=== PATIENT | female | born 1935 | race Caucasian/White ===

== ENCOUNTER 2018-12-16 21:45 | Inpatient (IN) | payer MEDICARE, BC ==
[~2018-12-16] VITALS: Ht 157.5 cm; Wt 68.0 kg
--- NOTE | 2018-12-16 21:50 | NUR ---
Patient bib pvt ambulance from [facility]. Patient is on 5150 for DTS and was seen by Conner Hanley, crisis team. Patient was accepted by Dr. Gil. Speech is clear, speaks in complete sentences. No neuro deficits.Respiratory even and unlabored, no cough no sob. Denies any n/v/d. Patient in bed at lowest position, sr upx2, call light within reach. Fall precautions implemented per protocol.
[2018-12-16 22:07] LABS: BASOPHILS # (AUTO) 0.1 K/uL (0.0-8.0); EOSINOPHILS # (AUTO) 0.1 K/uL (0.0-0.7); EOSINOPHILS % (AUTO) 1.1 % (0.0-7.0); HEMATOCRIT 42.8 % (31.2-41.9); HEMOGLOBIN 13.8 g/dL (10.9-14.3); LYMPHOCYTES % (AUTO) 12.3 % (20.5-51.5); MEAN CORPUSCULAR HEMOGLOBIN 29.1 uug (24.7-32.8); MEAN CORPUSCULAR HGB CONC 32 g/dL (32.3-35.6); MEAN CORPUSCULAR VOLUME 90.5 fL (75.5-95.3); MONOCYTES # (AUTO) 0.3 K/uL (2.0-10.0); MONOCYTES % (AUTO) 3.5 % (0.0-11.0); NEUTROPHILS # (AUTO) 6.9 K/uL (1.8-8.9); NEUTROPHILS % (AUTO) 82.1 % (38.5-71.5); PLATELET COUNT (AUTO) 682 K/uL (179-408); RED BLOOD CELL COUNT(AUTO) 4.73 MIL/uL (3.63-4.92); WHITE BLOOD COUNT (AUTO) 8.4 K/uL (3.8-11.8)
--- NOTE | 2018-12-16 22:13 | NUR ---
ERMD at bedside for MSE
[2018-12-16 22:15] LABS: CARBON DIOXIDE 29 mmol/L (21-32); CHLORIDE 106 mmol/L (98-107); CREATININE 0.9 mg/dL (0.6-1.3); GLUCOSE 101 mg/dL (74-106); POTASSIUM 4.3 mmol/L (3.5-5.1); UREA NITROGEN, BLOOD 19 mg/dL (7-18)
[2018-12-16 22:20] LABS: ETHANOL < 3 MG/DL (0-0)
[2018-12-16 22:21] LABS: ALANINE AMINOTRANSFERASE 15 U/L (14-59); ALKALINE PHOSPHATASE 91 U/L (50-136); ASPARTATE AMINOTRANSFERASE 12 U/L (15-37); BILIRUBIN,DIRECT 0.1 mg/dL (0.0-0.2); BILIRUBIN,TOTAL 0.3 mg/dL (0.2-1.0); TOTAL PROTEIN, SERUM 7.7 g/dL (6.4-8.2)
[2018-12-16 22:22] LABS: ACETAMINOPHEN < 2.0 ug/mL (10-30)
[2018-12-16 22:28] LABS: THYROID STIMULATING HORMONE 1.721 mIU/mL (0.358-3.740)
[2018-12-16] MEDS ORDERED: VANCOMYCIN 1G/D5W 200 ML PIGGYBACK IV ONE (22:30)
[2018-12-16] MEDS ORDERED: LOSA100T31 PO (22:39)
[2018-12-16] MEDS ORDERED: LOSA50TA39 PO (22:39)
[2018-12-16] MEDS ORDERED: POTA-88 PO (22:39)
[2018-12-16] MEDS ORDERED: CLON0.1T PO (22:39)
[2018-12-16] MEDS ORDERED: HYDR12.5 PO (22:39)
[2018-12-16] MEDS ORDERED: CHOL200026 PO (22:39)
[2018-12-16] MEDS ORDERED: CEFU500T66 PO (22:39)
[2018-12-16] MEDS ORDERED: LEVO25TA9 PO (22:39)
[2018-12-16] MEDS ORDERED: CYAN-51 PO (22:39)
[2018-12-16] MEDS ORDERED: GABA-532 PO (22:39)
[2018-12-16 22:52] LABS: *BILIRUBIN,URIN NEGATIVE (NEGATIVE); *BLOOD, URINE NEGATIVE (NEGATIVE); *CLARITY,URINE CLEAR (CLEAR); *COLOR,URINE YELLOW (YELLOW); *KETONES,URINE NEGATIVE (NEGATIVE); *UROBILINOGEN,URINE 0.2 E.U./dl (NORMAL); LEUKOCYTE ESTERASE ,URINE NEGATIVE (NEGATIVE); NITRITE, URINE NEGATIVE (NEGATIVE); PH,URINE 5.5 (5.0-8.0); UGLUCOSE NEGATIVE (NEGATIVE)
[2018-12-16] MEDS ORDERED: IV NS 1000 ML 1,000 ML IV ONE (23:00)
[2018-12-16 23:02] LABS: *AMPHETAMINE, URINE NEGATIVE (NEGATIVE); *BARBITURATE, URINE NEGATIVE (NEGATIVE); *CANNABINOID, URINE NEGATIVE (NEGATIVE); *COCCAINE, URINE NEGATIVE (NEGATIVE); *OPIATE, URINE NEGATIVE (NEGATIVE); *PHENCYCLIDINE SCREEN,URINE NEGATIVE (NEGATIVE)
[2018-12-16] MEDS ORDERED: VANCOMYCIN IV 200 ML ONE (23:04)
[2018-12-17] MEDS ORDERED: ONDANSETRON 4 MG/2 ML VIAL IV PRN (00:30)
[2018-12-17] MEDS ORDERED: ENOXAPARIN SODIUM 40 MG/0.4 ML DISP.SYRIN SQ SCH (00:30)
[2018-12-17] MEDS ORDERED: Z GUARD REMEDY PASTE 57 GM TUBE TOP PRN (00:30)
[2018-12-17] MEDS ORDERED: MAGNESIUM HYDROXIDE 30 ML LIQUID UDC PO PRN (00:30)
--- NOTE | 2018-12-17 01:20 | NUR ---
Patient transported to TELE in stable condition.
[2018-12-17 01:51] VITALS: BP 178/78
--- NOTE | 2018-12-17 02:00 | NUR ---
Received patient from ER. Dx: Cellulitis. Patient A/Ox4. No signs of acute distress noted. No complaints of pain at this time, only when walking due to right lower leg cellulitis. Picture taken and in chart. Heplock on the left AC is intact and patent. Safety measures initiated. Bed is low and locked, call light within reach. Patient oriented to unit and staff. Will continue to monitor.
[2018-12-17] MEDS: CLONIDINE HCL 0.1 MG TABLET PO PRN (02:10)
[2018-12-17] MEDS: IV NS 1000 ML 1,000 ML IV PRN (02:13)
[2018-12-17] MEDS: ACETAMINOPHEN 325 MG TABLET PO PRN (04:49)
[2018-12-17 04:51] VITALS: BP 155/78
[2018-12-17 06:37] LABS: BASOPHILS # (AUTO) 0.1 K/uL (0.0-8.0); BASOPHILS % (AUTO) 0.8 % (0.0-2.0); EOSINOPHILS # (AUTO) 0.2 K/uL (0.0-0.7); EOSINOPHILS % (AUTO) 2.3 % (0.0-7.0); HEMATOCRIT 39.6 % (31.2-41.9); LYMPHOCYTES # (AUTO) 1.8 K/uL (20.0-40.0); LYMPHOCYTES % (AUTO) 25.3 % (20.5-51.5); MEAN CORPUSCULAR HGB CONC 33 g/dL (32.3-35.6); MEAN CORPUSCULAR VOLUME 88.5 fL (75.5-95.3); MONOCYTES # (AUTO) 0.4 K/uL (2.0-10.0); MONOCYTES % (AUTO) 5.3 % (0.0-11.0); NEUTROPHILS # (AUTO) 4.8 K/uL (1.8-8.9); NEUTROPHILS % (AUTO) 66.3 % (38.5-71.5); PLATELET COUNT (AUTO) 658 K/uL (179-408); RED BLOOD CELL COUNT(AUTO) 4.48 MIL/uL (3.63-4.92); WHITE BLOOD COUNT (AUTO) 7.3 K/uL (3.8-11.8)
[2018-12-17 06:46] LABS: CARBON DIOXIDE 26 mmol/L (21-32); CHLORIDE 108 mmol/L (98-107); CREATININE 0.8 mg/dL (0.6-1.3); GLUCOSE 90 mg/dL (74-106); POTASSIUM 3.6 mmol/L (3.5-5.1); UREA NITROGEN, BLOOD 13 mg/dL (7-18)
[2018-12-17] MEDS: LEVOTHYROXINE SODIUM 25 MCG TABLET PO SCH (07:05)
--- NOTE | 2018-12-17 07:10 | NUR ---
RECEIVED PATIENT AWAKE AND IN BED. PATIENT DENIES PAIN AND DISCOMFORT. PATIENT ALERT AND ORIENTED X3. IV PATENT AND INTACT. BED IN LOWEST POSITION, SIDE RAILS UP X2, CALL LIGHT WITHIN REACH, AND SITTER AT BEDSIDE.
[2018-12-17 07:30] VITALS: BP 168/87
[2018-12-17] MEDS: LOSARTAN POTASSIUM 50 MG TABLET PO SCH ×2 (08:59→21:09)
[2018-12-17] MEDS ORDERED: Medication Not On Formulary EA (Cholecalciferol (Vitamin D3) (Vitamin D3 TAB) 2,000 UNIT PO SCH (09:00)
[2018-12-17] MEDS: GABAPENTIN 100 MG CAPSULE PO SCH ×3 (09:00→17:00)
[2018-12-17] MEDS: CHOLECALCIFEROL 1,000 UNIT TABLET PO SCH (09:00)
[2018-12-17] MEDS: CYANOCOBALAMIN 1,000 MCG TABLET PO SCH (09:00)
--- NOTE | 2018-12-17 09:31 | NUR ---
Clinical Pharmacy Note: Vancomycin Dosing per Pharmacy Subjective: Vancomycin IV to start on this 83 yo female patient for cellulitis. Objective: BUN 13/Scr 0.8 WBC 7.3 Temperature 97.6 ht 157 cm wt 69 kg Assessment/Plan: Vanco 1gm IV x1 given in ED on 12/17 at 2300. Will start vancomycin 1000mg IVPB Q27hr for a predicted vancomycin steady state trough level of 15.8 mcg/ml. 2nd dose due 12/18 at 0200. Will draw a vancomycin trough level prior to the 4th dose of vancomycin (not ordered yet). Will monitor renal function and adjust vancomycin dose, if needed, should renal function change significantly. Will follow daily.
[2018-12-17] MEDS ORDERED: ZOLPIDEM 5 MG TABLET PO PRN (10:00)
[2018-12-17] MEDS: BENZOCAINE/MENTH/CETYLPYRD LOZENGE MM PRN ×2 (11:51→21:16)
--- NOTE | 2018-12-17 12:49 | NUR ---
WOUND CARE CONSULT: PT PRESENTS WITH REDNESS AND SWELLING TO RT LOWER LEG, PRESENT ON ADMISSION. DEFER TO MD. WILL SEE PRN. CURRENT RONA SCORE IS 20. Addendum: 12/17/18 at 1250 by JAY VILLATORO RN Amended: Links added.
--- NOTE | 2018-12-17 13:00 | NUR ---
PATIENT IS HIGHLY ANXIOUS AND ACTING IN A SENSE OF MANIC. PATIENT HAS PRESSURED SPEECH AND IS NOT MAKING SENSE OF THINGS. PATIENT IS EXTREMELY RESTLESS DUE TO NOT HAVING ANY SLEEP LAST NIGHT. PATIENT REFUSES PRN ATIVAN. PATIENT STATES : SITTER IS HAVING A LIBERTARIAN OUTSIDE OF THE ROOM AND IS WHY SHE CANNOT SLEEP."
[2018-12-17] MEDS: LORAZEPAM 1 MG TABLET PO PRN ×2 (13:13→22:50)
[2018-12-17 17:38] VITALS: BP 168/84
--- NOTE | 2018-12-17 18:07 | NUR ---
PATIENT RESTLESS THROUGHOUT MORNING NOT MAKING MUCH SENSE. PATIENT SEEN BY DR. GALVAN, DR SIMMS PRN ATIVAN AND PATENT AGREED TO TAKE IT. PATIENT SLEPT FOR 4 1/2 HOURS. WHEN PATIENT WOKE UP PATIENT MORE ALERT AND ORIENTED, NO COMPLAINTS. DENIES PAIN AND DISCOMFORT. SAFETY MEASURES PROVIDED, SITTER AT BEDSIDE.
[2018-12-18] MEDS: VANCOMYCIN IV 1,000 MG in IV DEXTROSE 5% 250 ML IV SCH (02:30)
[2018-12-18] MEDS: ACETAMINOPHEN 325 MG TABLET PO PRN ×3 (05:22→23:49)
[2018-12-18] MEDS: IV NS 1000 ML 1,000 ML IV PRN ×2 (05:24→21:30)
[2018-12-18] MEDS: LORAZEPAM 1 MG TABLET PO PRN ×3 (05:40→23:49)
[2018-12-18] MEDS: BENZOCAINE/MENTH/CETYLPYRD LOZENGE MM PRN (06:14)
[2018-12-18] MEDS: LEVOTHYROXINE SODIUM 25 MCG TABLET PO SCH (06:17)
[2018-12-18 06:26] LABS: BASOPHILS # (AUTO) 0.1 K/uL (0.0-8.0); BASOPHILS % (AUTO) 1.1 % (0.0-2.0); EOSINOPHILS # (AUTO) 0.4 K/uL (0.0-0.7); EOSINOPHILS % (AUTO) 5.1 % (0.0-7.0); HEMATOCRIT 40.8 % (31.2-41.9); HEMOGLOBIN 13.2 g/dL (10.9-14.3); LYMPHOCYTES # (AUTO) 2.4 K/uL (20.0-40.0); LYMPHOCYTES % (AUTO) 32.8 % (20.5-51.5); MEAN CORPUSCULAR HEMOGLOBIN 28.8 uug (24.7-32.8); MEAN CORPUSCULAR HGB CONC 32 g/dL (32.3-35.6); MEAN CORPUSCULAR VOLUME 89.1 fL (75.5-95.3); MONOCYTES # (AUTO) 0.3 K/uL (2.0-10.0); MONOCYTES % (AUTO) 4.3 % (0.0-11.0); NEUTROPHILS # (AUTO) 4.2 K/uL (1.8-8.9); NEUTROPHILS % (AUTO) 56.7 % (38.5-71.5); PLATELET COUNT (AUTO) 671 K/uL (179-408); RED BLOOD CELL COUNT(AUTO) 4.58 MIL/uL (3.63-4.92); WHITE BLOOD COUNT (AUTO) 7.3 K/uL (3.8-11.8)
[2018-12-18 06:51] LABS: CARBON DIOXIDE 28 mmol/L (21-32); CHLORIDE 107 mmol/L (98-107); CHOLESTEROL 217 mg/dL (<200); CREATININE 0.7 mg/dL (0.6-1.3); GLUCOSE 83 mg/dL (74-106); HDL CHOLESTEROL 68 mg/dL (40-60); MAGNESIUM 1.8 mg/dL (1.8-2.4); PHOSPHOROUS 2.9 mg/dL (2.5-4.9); POTASSIUM 3.4 mmol/L (3.5-5.1); TRIGLYCERIDES 125 MG/DL (30-150); UREA NITROGEN, BLOOD 11 mg/dL (7-18)
[2018-12-18 06:52] LABS: THYROID STIMULATING HORMONE 6.277 mIU/mL (0.358-3.740)
[2018-12-18] MEDS ORDERED: ESCITALOPRAM OXALATE 10 MG TABLET NG SCH (09:15)
--- NOTE | 2018-12-18 09:23 | NUR ---
Clinical Pharmacy Note: Vancomycin Dosing per Pharmacy Subjective: Vancomycin IV to continue on this 83 yo female patient for cellulitis. Objective: BUN 11/Scr 0.7 WBC 7.3 Temperature 97.4 ht 157 cm wt 69 kg Assessment/Plan: Will continue same dose of vancomycin 1000mg IVPB Q27hr for a predicted vancomycin steady state trough level of 15.8 mcg/ml. 3rd dose due 12/19 at 0500. Will draw a vancomycin trough level prior to the 4th dose of vancomycin (not ordered yet). Will monitor renal function and adjust vancomycin dose, if needed, should renal function change significantly. Will follow daily.
[2018-12-18] MEDS ORDERED: POTASSIUM CHLORIDE 20 MEQ TAB.PRT.SR PO ONE (09:30)
[2018-12-18] MEDS: GABAPENTIN 100 MG CAPSULE PO SCH ×3 (09:32→16:27)
[2018-12-18] MEDS: LOSARTAN POTASSIUM 50 MG TABLET PO SCH ×2 (09:32→21:26)
[2018-12-18] MEDS: CYANOCOBALAMIN 1,000 MCG TABLET PO SCH ×2 (09:32→09:37)
[2018-12-18] MEDS: ESCITALOPRAM OXALATE 10 MG TABLET PO SCH (09:32)
[2018-12-18] MEDS: CHOLECALCIFEROL 1,000 UNIT TABLET PO SCH ×2 (09:33→09:37)
[2018-12-18 09:43] VITALS: BP 159/72
[2018-12-18] MEDS: ENOXAPARIN SODIUM 40 MG/0.4 ML DISP.SYRIN SQ SCH (10:48)
[2018-12-18 18:23] VITALS: BP 173/90
[2018-12-18] MEDS: CLONIDINE HCL 0.1 MG TABLET PO PRN (18:25)
--- NOTE | 2018-12-18 18:43 | NUR ---
Patient says she needs to know her laboratory results and if her Irish Moss Gatherer will be able to visit and if she will have a respiratory therapist. Bin Tripper Operator took vital signs, gave reassurance Doctor will round and provided as needed medication for symptoms of hypertension and anxiety. Eduardo Garcia RN
--- NOTE | 2018-12-18 19:11 | NUR ---
Handoff with NESTOR Ventura. Eduardo Peck RN
--- NOTE | 2018-12-18 19:20 | NUR ---
RECEIVED PT AWAKE, ALERT AND ORIENTEDX2. PT SHOWS NO SIGNS OF ACUTE DISTRESS. SITTER AT BEDSIDE FOR SAFETY. PT IV INTACT. SAFETY AND COMFORT PROVIDED. WILL CONTINUE TO MONITOR.
[2018-12-18 20:11] VITALS: BP 159/63
[2018-12-18 20:13] VITALS: BP 157/69
[2018-12-18] MEDS: METOPROLOL TARTRATE 25 MG TABLET PO SCH (21:25)
[2018-12-18] MEDS: ATORVASTATIN 10 MG TABLET PO SCH (21:26)
[2018-12-19] MEDS: VANCOMYCIN IV 1,000 MG in IV DEXTROSE 5% 250 ML IV SCH (04:45)
[2018-12-19 05:47] VITALS: BP 141/71
[2018-12-19] MEDS: LEVOTHYROXINE SODIUM 25 MCG TABLET PO SCH (06:22)
--- NOTE | 2018-12-19 06:37 | NUR ---
PT SLEPT 8 HOURS. SITTER AT BEDSIDE FOR SAFETY. PT SHOWS NO SIGNS OF ACUTE DISTRESS. PRESCRIBED MEDICATION GIVEN AND PT TOLERATED IT WELL. PT TOLERATED IT WELL. PT GIVEN ATIVAN FOR RESTLESSNESS AND ANXIETY. PT NEEDS REORIENTATION. PT TOLERATED IT WELL. SAFETY AND COMFORT PROVIDED. ALL NEEDS ARE MET. WILL ENDORSE TO INCOMING NURSE FOR CONTINUITY OF CARE.
--- NOTE | 2018-12-19 07:15 | NUR ---
patient in Bed, awake , calm and verbally responsive. No signs of Distress noted. No SOB. No complain of Pain or discomfort noted. patient with 1:1 sitter for safety. All needs attended and met. will continue to monitor.
[2018-12-19 07:30] VITALS: BP 144/72
[2018-12-19] MEDS: LOSARTAN POTASSIUM 50 MG TABLET PO SCH ×2 (08:06→20:12)
[2018-12-19] MEDS: ESCITALOPRAM OXALATE 10 MG TABLET PO SCH (08:06)
[2018-12-19] MEDS: GABAPENTIN 100 MG CAPSULE PO SCH ×3 (08:06→16:44)
[2018-12-19] MEDS: METOPROLOL TARTRATE 25 MG TABLET PO SCH ×2 (08:06→20:12)
[2018-12-19] MEDS: ENOXAPARIN SODIUM 40 MG/0.4 ML DISP.SYRIN SQ SCH (08:11)
[2018-12-19] MEDS: BENZOCAINE/MENTH/CETYLPYRD LOZENGE MM PRN (08:12)
--- NOTE | 2018-12-19 09:42 | NUR ---
Clinical Pharmacy Note: Vancomycin Dosing per Pharmacy Subjective: Vancomycin IV to continue on this 83 yo female patient for cellulitis. Objective: BUN 11/Scr 0.7 (12/18) WBC 7.3 (12/18) Temperature 98.5 ht 157 cm wt 69 kg Assessment/Plan: Will continue same dose of vancomycin 1000mg IVPB Q27hr for a predicted vancomycin steady state trough level of 15.8 mcg/ml. 3rd dose due 12/19 at 0500. Will draw a vancomycin trough level prior to the 4th dose of vancomycin (ordered for 12/20 at 0730am). Pharmacy shall review the level when available & adjust the dose if needed. Will follow daily.
[2018-12-19 12:00] VITALS: BP 136/75
[2018-12-19] MEDS: IV NS 1000 ML 1,000 ML IV PRN (12:30)
[2018-12-19 14:53] VITALS: BP 140/71
[2018-12-19] MEDS: ALBUTEROL SULFATE 2.5 MG/3 ML NEBU NEB PRN ×2 (17:19→20:29)
--- NOTE | 2018-12-19 18:35 | NUR ---
Patient in bed, awake and verbally responsive. On nasal cannula at 2LPM, PRN breathing treatment given for Wheezing. No complain of Pain or discomfort. IV infusing well to Left FA, No signs of infiltration noted. All needs attended and met. Remains on 1:1 sitter for safety. Will endorse to Oncoming Nurse.
--- NOTE | 2018-12-19 19:43 | NUR ---
Received patient in bed asleep but arousable. No complaints of pain at this time. IV on RFA intact and patent with IVF infusing. Safety measures observed. Call light within reach
[2018-12-19] MEDS: ATORVASTATIN 10 MG TABLET PO SCH (20:12)
[2018-12-19] MEDS ORDERED: FUROSEMIDE 20 MG/2 ML VIAL IV ONE ×2 (21:15→23:45)
[2018-12-19] MEDS: LORAZEPAM 1 MG TABLET PO PRN (21:56)
[2018-12-19 22:40] VITALS: BP 180/81
--- NOTE | 2018-12-20 | NUR ---
Patient noted w/ wheezing, n.o from Dr. Black for Lasix 20mg IV x 2 doses and to d/c IVF
[2018-12-20 04:00] VITALS: BP 164/83
[2018-12-20] MEDS: CLONIDINE HCL 0.1 MG TABLET PO PRN (04:58)
[2018-12-20] MEDS: LEVOTHYROXINE SODIUM 25 MCG TABLET PO SCH (06:19)
--- NOTE | 2018-12-20 06:42 | NUR ---
Patient slept intermittently. No complaints of pain at this time. All needs attended. Will endorse accordingly
[2018-12-20 07:06] LABS: CARBON DIOXIDE 33 mmol/L (21-32); CHLORIDE 102 mmol/L (98-107); CREATININE 0.7 mg/dL (0.6-1.3); GLUCOSE 94 mg/dL (74-106); MAGNESIUM 1.5 mg/dL (1.8-2.4); PHOSPHOROUS 3.5 mg/dL (2.5-4.9); POTASSIUM 2.9 mmol/L (3.5-5.1); UREA NITROGEN, BLOOD 11 mg/dL (7-18)
[2018-12-20 07:13] LABS: BASOPHILS # (AUTO) 0.1 K/uL (0.0-8.0); EOSINOPHILS # (AUTO) 0.3 K/uL (0.0-0.7); EOSINOPHILS % (AUTO) 3.6 % (0.0-7.0); HEMATOCRIT 37.2 % (31.2-41.9); HEMOGLOBIN 12.2 g/dL (10.9-14.3); LYMPHOCYTES # (AUTO) 1.3 K/uL (20.0-40.0); LYMPHOCYTES % (AUTO) 16.7 % (20.5-51.5); MEAN CORPUSCULAR HEMOGLOBIN 29.4 uug (24.7-32.8); MEAN CORPUSCULAR HGB CONC 33 g/dL (32.3-35.6); MEAN CORPUSCULAR VOLUME 89.6 fL (75.5-95.3); MONOCYTES # (AUTO) 0.5 K/uL (2.0-10.0); MONOCYTES % (AUTO) 6.3 % (0.0-11.0); NEUTROPHILS # (AUTO) 5.5 K/uL (1.8-8.9); NEUTROPHILS % (AUTO) 72.4 % (38.5-71.5); PLATELET COUNT (AUTO) 566 K/uL (179-408); RED BLOOD CELL COUNT(AUTO) 4.15 MIL/uL (3.63-4.92); WHITE BLOOD COUNT (AUTO) 7.6 K/uL (3.8-11.8)
[2018-12-20] MEDS: ALBUTEROL SULFATE 2.5 MG/3 ML NEBU NEB PRN (07:34)
[2018-12-20] MEDS: IPRATROPIUM BROMIDE 0.5 MG/2.5 ML NEBU NEB PRN (07:34)
--- NOTE | 2018-12-20 07:40 | NUR ---
Received patient in Bed, awake and verbally responsive. On Oxygen at 2LPM via nasal canula, still noted with Wheezing. No complain of pain or Discomfort noted. All needs attended. kept the call light within easy reach. will continue to monitor.
[2018-12-20] MEDS: LOSARTAN POTASSIUM 50 MG TABLET PO SCH ×2 (08:39→21:40)
[2018-12-20] MEDS: ESCITALOPRAM OXALATE 10 MG TABLET PO SCH (08:39)
[2018-12-20] MEDS: CHOLECALCIFEROL 1,000 UNIT TABLET PO SCH (08:40)
[2018-12-20] MEDS: GABAPENTIN 100 MG CAPSULE PO SCH ×3 (08:40→17:00)
[2018-12-20] MEDS: METOPROLOL TARTRATE 25 MG TABLET PO SCH ×2 (08:40→21:41)
[2018-12-20] MEDS: CYANOCOBALAMIN 1,000 MCG TABLET PO SCH (08:40)
[2018-12-20] MEDS: ENOXAPARIN SODIUM 40 MG/0.4 ML DISP.SYRIN SQ SCH (08:46)
[2018-12-20] MEDS: VANCOMYCIN IV 1,000 MG in IV DEXTROSE 5% 250 ML IV SCH (09:11)
[2018-12-20] MEDS ORDERED: MAGNESIUM OXIDE 400 MG TABLET PO ONE (09:45)
[2018-12-20] MEDS ORDERED: POTASSIUM CHLORIDE 20 MEQ TAB.PRT.SR PO ONE (09:45)
[2018-12-20 11:45] VITALS: BP 117/64
[2018-12-20 15:42] VITALS: BP 143/87
--- NOTE | 2018-12-20 17:40 | NUR ---
Clinical Pharmacy Note: Vancomycin Dosing per Pharmacy Subjective: Vancomycin IV to continue on this 83 yo female patient for cellulitis. Objective: BUN 11/Scr 0.7 WBC 7.6 Temperature 97.8 ht 157 cm wt 69 kg Vancomycin trough :5.6 Assessment/Plan: Since Vancomycin trough is unexpected low, will draw a vancomycin trough level again prior to the 5th dose of vancomycin (ordered for 12/21 at 1030am). Pharmacy shall review the level when available & adjust the dose if needed. Will follow daily.
--- NOTE | 2018-12-20 18:22 | NUR ---
Patient in bed, awake and verbally responsive. no signs of distress noted. No SOB. No complain of pain or discomfort noted. All needs attended and met. kept the call light within easy reach. Will endorse to oncoming Nurse.
[2018-12-20] MEDS: BENZOCAINE/MENTH/CETYLPYRD LOZENGE MM PRN (19:00)
[2018-12-20 21:00] VITALS: BP 153/64
[2018-12-20] MEDS: ACETAMINOPHEN 325 MG TABLET PO PRN (21:40)
[2018-12-20] MEDS: ATORVASTATIN 10 MG TABLET PO SCH (21:40)
[2018-12-21 04:00] VITALS: BP 138/61
[2018-12-21 06:19] LABS: BASOPHILS # (AUTO) 0.1 K/uL (0.0-8.0); EOSINOPHILS # (AUTO) 0.3 K/uL (0.0-0.7); EOSINOPHILS % (AUTO) 3.5 % (0.0-7.0); HEMATOCRIT 35.2 % (31.2-41.9); HEMOGLOBIN 11.6 g/dL (10.9-14.3); LYMPHOCYTES # (AUTO) 1.2 K/uL (20.0-40.0); LYMPHOCYTES % (AUTO) 15.4 % (20.5-51.5); MEAN CORPUSCULAR HEMOGLOBIN 29.4 uug (24.7-32.8); MEAN CORPUSCULAR HGB CONC 33 g/dL (32.3-35.6); MEAN CORPUSCULAR VOLUME 89.1 fL (75.5-95.3); MONOCYTES # (AUTO) 0.7 K/uL (2.0-10.0); MONOCYTES % (AUTO) 9.4 % (0.0-11.0); NEUTROPHILS # (AUTO) 5.5 K/uL (1.8-8.9); NEUTROPHILS % (AUTO) 70.7 % (38.5-71.5); PLATELET COUNT (AUTO) 540 K/uL (179-408); RED BLOOD CELL COUNT(AUTO) 3.95 MIL/uL (3.63-4.92); WHITE BLOOD COUNT (AUTO) 7.8 K/uL (3.8-11.8)
[2018-12-21 06:35] LABS: ALANINE AMINOTRANSFERASE 26 U/L (14-59); ALKALINE PHOSPHATASE 67 U/L (50-136); ASPARTATE AMINOTRANSFERASE 24 U/L (15-37); BILIRUBIN,TOTAL 0.6 mg/dL (0.2-1.0); CARBON DIOXIDE 34 mmol/L (21-32); CHLORIDE 103 mmol/L (98-107); CREATININE 1.1 mg/dL (0.6-1.3); GLUCOSE 99 mg/dL (74-106); MAGNESIUM 1.8 mg/dL (1.8-2.4); PHOSPHOROUS 4.4 mg/dL (2.5-4.9); POTASSIUM 3.3 mmol/L (3.5-5.1); TOTAL PROTEIN, SERUM 6.4 g/dL (6.4-8.2); UREA NITROGEN, BLOOD 16 mg/dL (7-18)
[2018-12-21 06:40] LABS: THYROID STIMULATING HORMONE 1.279 mIU/mL (0.358-3.740)
[2018-12-21 07:06] LABS: HEPATITIS B SURFACE AB Non Reactive (.); HEPATITIS B SURFACE AG Negative (Negative)
[2018-12-21] MEDS: LEVOTHYROXINE SODIUM 25 MCG TABLET PO SCH (07:54)
--- NOTE | 2018-12-21 08:05 | NUR ---
RECEIVED PT RESTING COMFORTABLY IN BED. PT AWAKE. ALERT AND ORIENTED X 3. PT DENIES PAIN AT THIS TIME. NO ACUTE DISTRESS OR SOB NOTED AT THIS TIME. SAFETY MEASURES OBSERVED AND IMPLEMENTED. CALL LIGHT WITHIN REACH. WILL CONTINUE TO MONITOR.
[2018-12-21] MEDS: METOPROLOL TARTRATE 25 MG TABLET PO SCH (08:29)
[2018-12-21] MEDS: CHOLECALCIFEROL 1,000 UNIT TABLET PO SCH (08:30)
[2018-12-21] MEDS: ESCITALOPRAM OXALATE 10 MG TABLET PO SCH (08:30)
[2018-12-21] MEDS: LOSARTAN POTASSIUM 50 MG TABLET PO SCH ×2 (08:30→21:54)
[2018-12-21] MEDS: CYANOCOBALAMIN 1,000 MCG TABLET PO SCH (08:34)
[2018-12-21] MEDS: GABAPENTIN 100 MG CAPSULE PO SCH ×3 (08:39→17:00)
[2018-12-21] MEDS: ENOXAPARIN SODIUM 40 MG/0.4 ML DISP.SYRIN SQ SCH (08:42)
[2018-12-21] MEDS ORDERED: hydrALAZINE HCL 25 MG TABLET PO PRN (10:30)
[2018-12-21] MEDS ORDERED: POTASSIUM CHLORIDE 20 MEQ TAB.PRT.SR PO ONE (10:30)
[2018-12-21 12:00] VITALS: BP 158/81
--- NOTE | 2018-12-21 12:09 | NUR ---
PT RESTING COMFORTABLY IN BED. PT IS MEDICATION COMPLIANT. NO ACUTE DISTRESS OR SOB NOTED. PT COOPERATIVE. CALL LIGHT WITHIN REACH. BED LOCKED IN LOW POSITION. WILL CONTINUE TO MONITOR PT.
[2018-12-21] MEDS: IPRATROPIUM BROMIDE 0.5 MG/2.5 ML NEBU NEB PRN (12:31)
[2018-12-21] MEDS: ALBUTEROL SULFATE 2.5 MG/3 ML NEBU NEB PRN (12:31)
[2018-12-21 16:12] VITALS: BP 155/74
--- NOTE | 2018-12-21 17:23 | NUR ---
PER DR PIMENTEL, THESE MEDICATIONS HAVE BEEN DC'D PT REFUSES TO TAKE FEARING SIDE EFFECTS: NEURONTIN, LOPRESSOR, ESCITALOPRAM,VIT B12.
--- NOTE | 2018-12-21 18:05 | NUR ---
PT RESTING IN ROOM. NO ACUTE DISTRESS OR SOB NOTED. WILL GIVE REPORT TO INCOMING SHIFT NURSE.
--- NOTE | 2018-12-21 20:00 | NUR ---
Patient received into care, awake and alert, sitting up in bed, resting comfortably. Patient has no complaints of pain or discomfort at this time. IV site is patent and intact. All safety and fall precaution measures are in place. Personal items and call light are within reach at all times. Will continue to monitor.
[2018-12-21] MEDS: CEFAZOLIN 1 G in IV DEXTROSE 5% 50 ML IV SCH (21:53)
[2018-12-21] MEDS: ATORVASTATIN 10 MG TABLET PO SCH (21:54)
[2018-12-21] MEDS: CLONIDINE HCL 0.1 MG TABLET PO PRN (21:54)
[2018-12-21 22:00] VITALS: BP 170/83
--- NOTE | 2018-12-21 22:00 | NUR ---
Notified by LONE LEAD LINEMAN that patient's BP is 170/83 HR 81. Provided patient with prescribed PRN Catapres 0.1mg for BP >160.
--- NOTE | 2018-12-21 23:00 | NUR ---
Retake of patient BP reflects 125/53 HR 65. Catapres effective. Patient resting well.
[2018-12-21] MEDS: BENZOCAINE/MENTH/CETYLPYRD LOZENGE MM PRN (23:21)
[2018-12-22 00:09] VITALS: BP 125/53
[2018-12-22 04:00] VITALS: BP 145/76
[2018-12-22] MEDS: LEVOTHYROXINE SODIUM 25 MCG TABLET PO SCH (06:22)
[2018-12-22] MEDS: ACETAMINOPHEN 325 MG TABLET PO PRN (06:22)
--- NOTE | 2018-12-22 06:30 | NUR ---
Patient is very concerned that when she walks for short periods of time, pain, heat, and swelling occurs in her right leg and does not feel that the prescribed antibiotics are effective. Patient also states that she normally receives foot baths and application of lidocaine lotion applied to her feet, at the facility from where she is a resident, which greatly helps with the pain and discomfort she feels in her feet. Nurse advised would make note of her concerns and provide the information to the oncoming nurse, so that it could be relayed to the MD
--- NOTE | 2018-12-22 06:37 | NUR ---
Patient slept throughout night with only one incident of pain that was addressed with prescribed Tylenol @ 650mg, po. Prescribed IV antibiotic infused as ordered and tolerated well, with no adverse side effects verbalized or observed. All prescribed medications provided as ordered and tolerated well. Patient had an incident of elevated BP, which was addressed with prescribed catapres 0.1mg, which was effective in lowering BP and HR to WNL. Patient concerns about her care have been noted. All safety and fall precaution measures remain in place. Call light and personal items are within reach at all times.
[2018-12-22] MEDS: CEFAZOLIN 1 G in IV DEXTROSE 5% 50 ML IV SCH (09:16)
[2018-12-22] MEDS: CHOLECALCIFEROL 1,000 UNIT TABLET PO SCH (09:16)
[2018-12-22] MEDS: LOSARTAN POTASSIUM 50 MG TABLET PO SCH (09:17)
[2018-12-22] MEDS: ENOXAPARIN SODIUM 40 MG/0.4 ML DISP.SYRIN SQ SCH (09:21)
[2018-12-22 11:50] VITALS: BP 145/65
[2018-12-22] MEDS: ALBUTEROL SULFATE 2.5 MG/3 ML NEBU NEB PRN (11:55)
[2018-12-22] MEDS: IPRATROPIUM BROMIDE 0.5 MG/2.5 ML NEBU NEB PRN (11:55)
[2018-12-22] MEDS: LORAZEPAM 1 MG TABLET PO PRN ×2 (13:32→19:52)
[2018-12-22 15:49] VITALS: BP 166/73
[2018-12-22] MEDS ORDERED: ATOR10TA PO (16:54)
[2018-12-22] MEDS ORDERED: ZOLP5TAB8 PO (16:54)
[2018-12-22] MEDS ORDERED: HYDR-894 PO (16:54)
[2018-12-22] MEDS ORDERED: ALBU2.5V7 NEB (16:54)
[2018-12-22] MEDS ORDERED: LORA-258 PO (16:54)
[2018-12-22] MEDS ORDERED: Benzocaine/Menth/Cetylpyrd Cl MM (16:54)
[2018-12-22] MEDS ORDERED: CEFA1VIA19 IV (16:54)
[2018-12-22] MEDS ORDERED: ACET325T53 PO (16:54)
[2018-12-22] MEDS ORDERED: IPRA0.2S6 NEB (16:54)
[2018-12-22] MEDS ORDERED: LOSA50TA3 PO (16:54)
[2018-12-22] MEDS ORDERED: ACID1TAB4 PO (16:54)
[2018-12-22] MEDS ORDERED: MAGN400O6 PO (16:54)
--- NOTE | 2018-12-22 18:50 | NUR ---
report called to maurilio at [facility]. patients belongings were reconciled and medications picked up from pharmacy for discharge. iv in place on discharge and discharge education given. Patient appears to be somewhat anxious for discharge but glade that she is not going back to [facility]. awaiting ambulance for pickup.
--- NOTE | 2018-12-22 19:15 | NUR ---
PATIENT WAS AMBULATING IN HALLWAY WITH WALKER INDEPENDENTLY AGITATED ABOUT DISCHARGE WHEN AMBULANCE ARRIVED, PATIENT TAKEN TO ROOM AND VITALS RECORDED BY AMBULANCE CREW, BLOOD PRESSURE NOTED TO BE ELEVATED AND PATIENT GIVEN CLONIDINE AND AMBULANCE WAS ASKED TO WAIT.
[2018-12-22 19:31] VITALS: BP 167/72
[2018-12-22] MEDS: CLONIDINE HCL 0.1 MG TABLET PO PRN (19:31)
--- NOTE | 2018-12-22 19:50 | NUR ---
PATIENT CONTINUED TO BE AGITATED DUE TO WAITING FOR DISCHARGE, AND WAS GIVEN ATIVAN.
[2018-12-22] MEDS ORDERED: CLONIDINE HCL 0.1 MG TABLET PO ONE (20:00)
== END 2018-12-22 20:46 | DRG 871 ==
LOC: ER 21:45 → TELE3 12-17 00:54 → EDBD 12-17 00:54 → MEDSURG3 12-17 16:20
PROVIDERS: ADMIT Nurse Practitioner Acute Care; ATTEND Internal Medicine
DX: A41.9 Sepsis, unspecified organism (principal); I50.33 Acute on chronic diastolic (congestive) heart failure; L03.115 Cellulitis of right lower limb; J45.901 Unspecified asthma with (acute) exacerbation; D68.59 Other primary thrombophilia; E87.2 Acidosis; I11.0 Hypertensive heart disease with heart failure; Z91.81 History of falling; Z74.09 Other reduced mobility; H26.9 Unspecified cataract; Z90.710 Acquired absence of both cervix and uterus; E03.9 Hypothyroidism, unspecified; Z79.890 Hormone replacement therapy; F41.9 Anxiety disorder, unspecified; E78.5 Hyperlipidemia, unspecified; E87.6 Hypokalemia; E83.42 Hypomagnesemia; Z87.891 Personal history of nicotine dependence; K46.9 Unspecified abdominal hernia without obstruction or gangrene; B35.1 Tinea unguium; B35.3 Tinea pedis; Z79.899 Other long term (current) drug therapy; I70.203 Unspecified atherosclerosis of native arteries of extremities, bilateral legs; I70.0 Atherosclerosis of aorta; M54.10 Radiculopathy, site unspecified
CPT/HCPCS: 36415; 70030-TC; 71045; 80307; 83605; 83735; 84100; 84443; 85025; 86706; 86803; 87040; 87340; 93005; 93307; 94640; 94664; A4663; G0378; G0480; G0480-TC; J0690; J1650; J1940; J3370; J3590; J7030; J7060

== ENCOUNTER 2022-03-22 23:37 | Inpatient (IN) | payer MEDICARE, BC ==
[~2022-03-22] VITALS: Ht 154.9 cm; Wt 53.5 kg
[~2022-03-22 23:37] MED LIST: ACET325T53 PO; ACID1TAB4 PO; ALBU2.5V7 NEB; ATOR10TA PO; Benzocaine/Menth/Cetylpyrd Cl MM; CEFA1VIA19 IV; CHOL200026 PO; CLON0.1T PO; HYDR-894 PO; HYDR12.5 PO; IPRA0.2S6 NEB; LEVO25TA9 PO; LORA-258 PO; LOSA50TA3 PO; MAGN400O6 PO; POTA-88 PO; ZOLP5TAB8 PO
--- NOTE | 2022-03-23 | NUR ---
Seen and examined by Dr. Leiva.
--- NOTE | 2022-03-23 00:34 | NUR ---
labs collected by tech. u/a collected sent to lab
[2022-03-23 00:52] LABS: HEMATOCRIT 39.4 % (31.2-41.9); MEAN CORPUSCULAR HEMOGLOBIN 29.3 uug (24.7-32.8); MEAN CORPUSCULAR VOLUME 90.7 fL (75.5-95.3); PLATELET COUNT (AUTO) 800 K/uL (179-408)
[2022-03-23 01:02] LABS: *BILIRUBIN,URIN NEGATIVE (NEGATIVE); *BLOOD, URINE NEGATIVE (NEGATIVE); *CLARITY,URINE CLEAR (CLEAR); *COLOR,URINE YELLOW (YELLOW); *KETONES,URINE NEGATIVE (NEGATIVE); *UROBILINOGEN,URINE 0.2 E.U./dl (NORMAL); LEUKOCYTE ESTERASE ,URINE NEGATIVE (NEGATIVE); NITRITE, URINE NEGATIVE (NEGATIVE); PH,URINE 7.5 (5.0-8.0); UGLUCOSE NEGATIVE (NEGATIVE)
[2022-03-23 01:05] LABS: ALANINE AMINOTRANSFERASE 8 U/L (14-59); ALKALINE PHOSPHATASE 96 U/L (50-136); ASPARTATE AMINOTRANSFERASE 17 U/L (15-37); BILIRUBIN,DIRECT 0.1 mg/dL (0.0-0.2); BILIRUBIN,TOTAL 0.5 mg/dL (0.2-1.0); CARBON DIOXIDE 29 mmol/L (21-32); CHLORIDE 104 mmol/L (98-107); CREATININE 0.9 mg/dL (0.6-1.3); GLUCOSE 92 mg/dL (74-106); POTASSIUM 4.3 mmol/L (3.5-5.1); TOTAL PROTEIN, SERUM 8.2 g/dL (6.4-8.2); UREA NITROGEN, BLOOD 14 mg/dL (7-18)
--- NOTE | 2022-03-23 01:19 | NUR ---
Pt. in bed, MRSA collercted and sent to lab
--- NOTE | 2022-03-23 02:04 | NUR ---
Called Misael in [facility] spoke to DAVID nurse from [facility] who states they don't have a list of her medication stating "She handle all of her medications and she does not let us touch them."
[2022-03-23] MEDS ORDERED: ATOR10TA PO (02:48)
[2022-03-23] MEDS ORDERED: SENN-261 PO (02:48)
[2022-03-23] MEDS ORDERED: LORA-258 PO (02:48)
[2022-03-23] MEDS ORDERED: CARV6.25 PO (02:48)
[2022-03-23] MEDS ORDERED: ESTR0.623 PO (02:48)
[2022-03-23] MEDS ORDERED: HYDR-894 PO (02:48)
[2022-03-23] MEDS ORDERED: ASPI81TA31 PO (02:48)
[2022-03-23] MEDS ORDERED: ASCO500C18 PO (02:48)
[2022-03-23] MEDS ORDERED: POLY15DR31 OP (02:48)
[2022-03-23] MEDS ORDERED: MULT-594 PO (02:48)
[2022-03-23] MEDS ORDERED: LOSA100T31 PO (02:48)
[2022-03-23] MEDS ORDERED: ACID1TAB4 PO (02:48)
--- NOTE | 2022-03-23 02:52 | NUR ---
Loren nurse from [facility] faxed medication list.
--- NOTE | 2022-03-23 05:11 | NUR ---
Called [facility] and spoke to July, patient was assigned bed 141b.
--- NOTE | 2022-03-23 05:37 | NUR ---
Called U and gave report to July.
[2022-03-23 06:45] VITALS: BP 160/90
[2022-03-23] MEDS ORDERED: ACETAMINOPHEN 325 MG TABLET PO PRN (06:45)
[2022-03-23] MEDS ORDERED: LORAZEPAM 0.5 MG TABLET PO PRN (06:45)
[2022-03-23] MEDS ORDERED: MAGNESIUM HYDROXIDE 30 ML LIQUID UDC PO PRN (06:45)
[2022-03-23] MEDS ORDERED: MAG HYDROX/AL HYDROX/SIMETH 30 ML LIQUID UDC PO PRN (06:45)
[2022-03-23] MEDS ORDERED: BLOOD SUGAR DIAGNOSTIC 1 EACH STRIP VI ONE (06:45)
--- NOTE | 2022-03-23 06:48 | NUR ---
GPS NOTES: Admitted a 86 y/0 female patient in MHU from [facility], on 5150 d/t DTS and GD, as per hold patient is having bizarre behavior,patient is not taking her medications, calling police, aggressive toward the staff, not sleeping at night, hearing voices. She was BIB ER nurse to the unit, she is observed to have unsteady gait, assist safely to chair. Upon face to face evaluation patient is noted to be anxious, not answering questions that are being asked. She is fixated on contacting the police and Dr.susie that know her case. Patient had a hard time hearing making it difficult for her to answer questions at this time, she states she don/t have hearing aids. She denies SI/AH V/H. V/s taken and recorded. Oriented to the unit. Advisement and patient rights handbook given to patient. Safety precautiopns in placed.
--- NOTE | 2022-03-23 06:58 | NUR ---
Pt. admitted to MHU , under care of Dr. Nguyễn. Belongs List completed and belonging transferred with the patient. RN May aware of patients arrival.
[2022-03-23 07:30] VITALS: BP 159/93
[2022-03-23] MEDS ORDERED: hydrALAZINE HCL 25 MG TABLET PO PRN (09:15)
[2022-03-23] MEDS ORDERED: LOSARTAN POTASSIUM 50 MG TABLET PO SCH (09:15)
[2022-03-23] MEDS ORDERED: CARVEDILOL 6.25 MG TABLET PO ONE (10:30)
[2022-03-23] MEDS: ASPIRIN 81 MG TAB.CHEW PO SCH (11:10)
[2022-03-23] MEDS ORDERED: ZOLP5TAB2 PO (12:40)
[2022-03-23] MEDS ORDERED: LOSA50TA39 PO (12:40)
[2022-03-23] MEDS: DOXYCYCLINE HYCLATE 100 MG TABLET PO SCH ×2 (13:33→21:21)
[2022-03-23] MEDS ORDERED: LORA10TA7 PO (13:39)
[2022-03-23] MEDS ORDERED: CALC1TAB91 PO (13:41)
[2022-03-23] MEDS ORDERED: MELA10TA PO (13:42)
[2022-03-23 16:00] VITALS: BP 135/64
--- NOTE | 2022-03-23 16:59 | NUR ---
Received patient awake in her room. Patient is A/O X 2 -3 to person, place. Patient is cooperative with nursing care, compliant with medications, depressed, irritable at times. Patient presents redness and scaly skin on left lower extremity, Assistant Professor Nurse Education was informed and ordered Bilateral arterial Doppler, and Doxycycline 100 mg PO for 7 days starting today at 13:00. Patient ambulates with walker, unsteady gait. Requires minimal assistance with ADL. Active listening provided. Fall and safety precautions implemented.
[2022-03-23] MEDS: ACIDOPHILUS/BULGARICUS CHEW TAB PO SCH (17:15)
[2022-03-23] MEDS: CALCIUM CARB/VITAMIN D 500MG-200UNITS TABLET PO SCH (17:16)
[2022-03-23 20:13] VITALS: BP 152/64
[2022-03-23] MEDS: SENNOSIDES 1 TABLET PO SCH (20:13)
[2022-03-23] MEDS: ATORVASTATIN 10 MG TABLET PO SCH (20:13)
[2022-03-23] MEDS: LORAZEPAM 1 MG TABLET PO PRN (20:14)
[2022-03-23] MEDS: QUETIAPINE FUMARATE 25 MG TABLET PO SCH (20:26)
[2022-03-23] MEDS ORDERED: CARVEDILOL 6.25 MG TABLET PO SCH (21:00)
--- NOTE | 2022-03-24 02:32 | NUR ---
Received patient in room. Awake and alert but forgetful. The patient is anxious and needy . This patient refused to take her PM Seroquel, despite education and encouragement from this customs entry writer. Frequent reorientation and reassurance provided during the night. Safety Stratiges are in place. Continuing to monitor V.S and provided assistance with ADLs as needed.
[2022-03-24] MEDS: LEVOTHYROXINE SODIUM 25 MCG TABLET PO SCH (06:23)
[2022-03-24] MEDS: CALCIUM CARB/VITAMIN D 500MG-200UNITS TABLET PO SCH ×2 (06:24→16:14)
[2022-03-24 07:30] VITALS: BP 157/80
[2022-03-24 08:24] LABS: BILIRUBIN,TOTAL 0.6 mg/dL (0.2-1.0); CREATININE 0.9 mg/dL (0.6-1.3); POTASSIUM 3.9 mmol/L (3.5-5.1); TOTAL PROTEIN, SERUM 7.7 g/dL (6.4-8.2)
[2022-03-24] MEDS ORDERED: Medication Not On Formulary EA (Ascorbic Acid (Vitamin C) 1,000 MG) PO SCH (09:00)
[2022-03-24] MEDS ORDERED: Medication Not On Formulary EA (Multivitamins (Multivitamin) 1 EACH) PO SCH (09:00)
[2022-03-24] MEDS ORDERED: Medication Not On Formulary EA (Cholecalciferol (Vitamin D3) (Vitamin D3 TAB) 2,000 UNIT PO SCH (09:00)
[2022-03-24] MEDS ORDERED: CHOLECALCIFEROL 1,000 UNIT TABLET PO SCH (09:00)
[2022-03-24] MEDS: ACIDOPHILUS/BULGARICUS CHEW TAB PO SCH ×2 (09:17→16:14)
[2022-03-24] MEDS: ASPIRIN 81 MG TAB.CHEW PO SCH (09:17)
[2022-03-24] MEDS: MULTIVITAMINS,THERAPEUTIC TABLET PO SCH (09:17)
[2022-03-24] MEDS: ESCITALOPRAM OXALATE 10 MG TABLET PO SCH (09:18)
[2022-03-24] MEDS: LOSARTAN POTASSIUM 50 MG TABLET PO SCH ×2 (09:18→16:20)
[2022-03-24] MEDS: ASCORBIC ACID 500 MG TABLET PO SCH (09:18)
[2022-03-24] MEDS: DOXYCYCLINE HYCLATE 100 MG TABLET PO SCH ×2 (09:23→19:55)
--- NOTE | 2022-03-24 10:34 | NUR ---
VANDA Initial Discharge Note: Pt currently resides at [facility] located at [address] [place] [address] ([phone]). V[facility] upon [facility]. Pt stated she currently does not want to return to [facility]. However, pt stated she will like some time to finalize her decision. VANDA spoke with pt's brother, Dash
--- NOTE | 2022-03-24 10:36 | NUR ---
VANDA Family Contact: VANDA spoke with pt's brother, Dash Haas ([phone]) who stated pt does not have a DPOA or conservator. Dash stated pt does not have any family support to help with the pt upon discharge unfortunately. Dash stated he wishes for pt to agree to return to [facility] and would appreciate updates from this SW. VANDA ensured Dash will be updated with treatment and discharge planning prior to discharge. Dash was appreciate and agreeable.
--- NOTE | 2022-03-24 10:36 | NUR ---
VANDA Initial Discharge Note Update: Pt currently resides at [facility] located at [address] [place] [address] ([phone]). [facility] upon [facility]. Pt stated she currently does not want to return to [facility]. However, pt stated she will like some time to finalize her decision. VANDA spoke with pt's brother, Dash Haas ([phone]) who stated pt does not have a DPOA or conservator. Dash stated pt does not have any family support to help with the pt upon discharge unfortunately. VANDA will continue to work with pt, family and MD to ensure a safe and proper discharge plan.
--- NOTE | 2022-03-24 10:37 | NUR ---
VANDA Discharge Update: VANDA spoke with Hina, community life care planner at [facility] located at [address] [place] [address] ([phone]) who stated pt is welcome back upon discharge. Hina stated they provide transportation for the pt Sunday through Sunday before 5pm. VANDA informed Hina this automotive service writer will update Hina with a discharge date when available. Hina is aware and agreeable.
--- NOTE | 2022-03-24 11:39 | NUR ---
Firearms Report: Project Intern completed and submitted a [employer] firearms report for 5150 a danger to others and grave disability certifications. A copy of report has been placed in patient chart.
[2022-03-24] MEDS: LORAZEPAM 1 MG TABLET PO PRN (19:55)
[2022-03-24] MEDS: SENNOSIDES 1 TABLET PO SCH (19:55)
[2022-03-24] MEDS: ATORVASTATIN 10 MG TABLET PO SCH (19:56)
[2022-03-24] MEDS: QUETIAPINE FUMARATE 25 MG TABLET PO SCH (19:56)
[2022-03-24 20:07] VITALS: BP 142/59
--- NOTE | 2022-03-24 23:36 | NUR ---
Received patient at the start of the shift, anxious and confused. The patient was concerned that she had not gotten any medications during the day, that she missed seeing the doctor and that the did not order her food for tomorrow. This program writer provided reassurance and redirection. The reality is , this patient did get those things but could not remember. The patient ruminates on situations in the past that may or may not have happened. She denies SI , but is worried about the minute to minute plan. The patient did verbally make a contract for safety and took the PM medications with education and encouragement. Safety Stratiges are in place and continuous monitoring of needed assistance with ADLs . No acute distress noted at this time.
[2022-03-25] MEDS: LEVOTHYROXINE SODIUM 25 MCG TABLET PO SCH (06:24)
[2022-03-25] MEDS: CALCIUM CARB/VITAMIN D 500MG-200UNITS TABLET PO SCH ×2 (06:24→17:20)
[2022-03-25 07:52] VITALS: BP 157/81
[2022-03-25] MEDS: ASPIRIN 81 MG TAB.CHEW PO SCH (08:45)
[2022-03-25] MEDS: LOSARTAN POTASSIUM 50 MG TABLET PO SCH ×2 (08:51→17:20)
[2022-03-25] MEDS: DOXYCYCLINE HYCLATE 100 MG TABLET PO SCH ×2 (08:54→20:54)
[2022-03-25] MEDS: ACIDOPHILUS/BULGARICUS CHEW TAB PO SCH ×2 (08:54→17:20)
[2022-03-25] MEDS: MULTIVITAMINS,THERAPEUTIC TABLET PO SCH (08:55)
[2022-03-25] MEDS: ESCITALOPRAM OXALATE 10 MG TABLET PO SCH (08:55)
[2022-03-25] MEDS: ASCORBIC ACID 500 MG TABLET PO SCH (08:59)
--- NOTE | 2022-03-25 15:10 | NUR ---
Patient is forgetful, confused, disorganized, cooperative with nursing care, compliant with medications. Patient is A/O X 2 to person. Patient ambulates with walker, unsteady gait. Continent with bladder and bowel. Reality orientation provided. Fall and safety precautions implemented.
[2022-03-25 16:37] VITALS: BP 142/68
[2022-03-25 20:00] VITALS: BP 159/75
[2022-03-25] MEDS: ATORVASTATIN 10 MG TABLET PO SCH (20:54)
[2022-03-25] MEDS: SENNOSIDES 1 TABLET PO SCH (20:54)
[2022-03-25] MEDS: ZOLPIDEM 5 MG TABLET PO PRN (20:54)
[2022-03-25] MEDS: QUETIAPINE FUMARATE 25 MG TABLET PO SCH ×2 (20:55→21:00)
[2022-03-26] MEDS: LEVOTHYROXINE SODIUM 25 MCG TABLET PO SCH (06:26)
[2022-03-26] MEDS: CALCIUM CARB/VITAMIN D 500MG-200UNITS TABLET PO SCH ×2 (06:26→17:02)
[2022-03-26 08:26] VITALS: BP 157/72
[2022-03-26] MEDS: ESCITALOPRAM OXALATE 10 MG TABLET PO SCH (08:53)
[2022-03-26] MEDS: ACIDOPHILUS/BULGARICUS CHEW TAB PO SCH ×2 (08:53→17:02)
[2022-03-26] MEDS: MULTIVITAMINS,THERAPEUTIC TABLET PO SCH (08:53)
[2022-03-26] MEDS: DOXYCYCLINE HYCLATE 100 MG TABLET PO SCH ×2 (08:53→20:58)
[2022-03-26] MEDS: ASCORBIC ACID 500 MG TABLET PO SCH (08:53)
[2022-03-26] MEDS: LOSARTAN POTASSIUM 50 MG TABLET PO SCH ×2 (08:54→17:03)
[2022-03-26] MEDS: ASPIRIN 81 MG TAB.CHEW PO SCH (08:55)
[2022-03-26] MEDS: METOPROLOL TARTRATE 25 MG TABLET PO SCH ×2 (12:22→20:58)
[2022-03-26 16:17] VITALS: BP 147/64
--- NOTE | 2022-03-26 16:34 | NUR ---
Received Patient is AAO x2 forgetful, confused, disorganized, cooperative with nursing care, compliant with medications. Patient is . on antibiotic for BLE cellulitis patient tolerated well , Patient ambulates with walker, unsteady gait. Continent with bladder and bowel. Reality orientation provided. Fall and safety precautions implemented.
[2022-03-26] MEDS: GLUCERNA SHAKE 237 ML CAN PO SCH (17:03)
[2022-03-26 20:06] VITALS: BP 158/81
[2022-03-26] MEDS: ATORVASTATIN 10 MG TABLET PO SCH (20:57)
[2022-03-26] MEDS: SENNOSIDES 1 TABLET PO SCH (20:57)
[2022-03-26] MEDS: QUETIAPINE FUMARATE 25 MG TABLET PO SCH (20:58)
[2022-03-26] MEDS: ZOLPIDEM 5 MG TABLET PO PRN (21:25)
--- NOTE | 2022-03-27 03:16 | NUR ---
GPS NOTES: Patient in bed when received, patient A&0x3. Patient is to be hard of hearing making it difficult to communicate with patient. Patient needs alot of prompting when taking her medications. She continues to refuse seroquel as she states "There's nothing wrong w/my head, I will speak with my psychiatrist about this". Educate in the importance of med compliant but still refused. Patient verbalized her complaints on her independent residence on how they are trying to get rid of her, as she tried to queta them for injuring her toes w/c land her to the hospital. Active listening implemented. Patient is appreciative for this public relations writer for listening to her. PRN ambien given. Effective. Patient sleeping well. No distress noted. All safety measures implemented.
[2022-03-27] MEDS: LEVOTHYROXINE SODIUM 25 MCG TABLET PO SCH (06:13)
[2022-03-27] MEDS: CALCIUM CARB/VITAMIN D 500MG-200UNITS TABLET PO SCH ×2 (06:13→17:37)
[2022-03-27] MEDS: MULTIVITAMINS,THERAPEUTIC TABLET PO SCH (08:34)
[2022-03-27] MEDS: ESCITALOPRAM OXALATE 10 MG TABLET PO SCH (08:34)
[2022-03-27] MEDS: ACIDOPHILUS/BULGARICUS CHEW TAB PO SCH ×2 (08:34→17:37)
[2022-03-27] MEDS: ASCORBIC ACID 500 MG TABLET PO SCH (08:34)
[2022-03-27] MEDS: ASPIRIN 81 MG TAB.CHEW PO SCH (08:34)
[2022-03-27] MEDS: METOPROLOL TARTRATE 25 MG TABLET PO SCH ×2 (08:35→20:26)
[2022-03-27] MEDS: LOSARTAN POTASSIUM 50 MG TABLET PO SCH ×2 (08:35→17:38)
[2022-03-27] MEDS: DOXYCYCLINE HYCLATE 100 MG TABLET PO SCH ×2 (08:37→20:25)
[2022-03-27] MEDS: GLUCERNA SHAKE 237 ML CAN PO SCH ×2 (08:38→17:39)
[2022-03-27 09:06] VITALS: BP 139/76
--- NOTE | 2022-03-27 14:19 | NUR ---
Received Patient is AAO x2 forgetful, confused, disorganized, argumentative and needy with nursing care, compliant with AM medications. bu refused Seroquel at HS , Dr. Gil adjusted HS medication and explanted to pt. per patient she agree to take medication tonight . Patient is on antibiotic for BLE cellulitis patient tolerated well , Patient ambulates with walker, unsteady gait. Continent with bladder and bowel. Reality orientation provided. Fall and safety precautions implemented.
[2022-03-27 16:17] VITALS: BP 155/78
[2022-03-27 19:57] VITALS: BP 155/63
[2022-03-27] MEDS: SENNOSIDES 1 TABLET PO SCH (20:24)
[2022-03-27] MEDS: ATORVASTATIN 10 MG TABLET PO SCH (20:24)
[2022-03-27] MEDS: LORAZEPAM 1 MG TABLET PO PRN (20:25)
[2022-03-27] MEDS: OLANZAPINE 2.5 MG TABLET PO SCH ×2 (20:25→21:00)
[2022-03-27] MEDS: ZOLPIDEM 5 MG TABLET PO PRN (21:02)
--- NOTE | 2022-03-27 21:27 | NUR ---
Patient refused to take PM Zyprexa despite education and encouragement. Patient is forgetful, confused and has no recollection of agreeing to take the medication . The patient is needy and asked for a " Sleeping pill ". After this automotive service writer brought the medication to the room, the patient changed her mind and refused it. Frequent real estate administrative assistant , reassurance and reorientation needed and provided. Safety Stratiges are in place.
[2022-03-28] MEDS: CALCIUM CARB/VITAMIN D 500MG-200UNITS TABLET PO SCH ×2 (05:52→17:23)
[2022-03-28] MEDS: LEVOTHYROXINE SODIUM 25 MCG TABLET PO SCH (05:52)
[2022-03-28 07:52] VITALS: BP 142/74
[2022-03-28] MEDS: MULTIVITAMINS,THERAPEUTIC TABLET PO SCH (08:26)
[2022-03-28] MEDS: ASPIRIN 81 MG TAB.CHEW PO SCH (08:26)
[2022-03-28] MEDS: METOPROLOL TARTRATE 25 MG TABLET PO SCH (08:26)
[2022-03-28] MEDS: ACIDOPHILUS/BULGARICUS CHEW TAB PO SCH ×2 (08:26→17:23)
[2022-03-28] MEDS: GLUCERNA SHAKE 237 ML CAN PO SCH ×2 (08:26→17:24)
[2022-03-28] MEDS: DOXYCYCLINE HYCLATE 100 MG TABLET PO SCH ×2 (08:27→20:27)
[2022-03-28] MEDS: ASCORBIC ACID 500 MG TABLET PO SCH (08:27)
[2022-03-28] MEDS: ESCITALOPRAM OXALATE 10 MG TABLET PO SCH (08:27)
[2022-03-28] MEDS: OLANZAPINE 2.5 MG TABLET PO SCH ×3 (08:36→20:26)
[2022-03-28] MEDS: LOSARTAN POTASSIUM 50 MG TABLET PO SCH ×2 (09:07→17:24)
[2022-03-28 15:16] VITALS: BP 132/59
--- NOTE | 2022-03-28 16:50 | NUR ---
Patient was refused to take Zyprexa last night , made aware and adjusted medication. patient is intrusive irritable forgetful needy .compliant with all am medication ,assisted and supervision patient to restroom .ambulate with walker refused to attend in group activity ,will continue to monitoring.
[2022-03-28 19:51] VITALS: BP 156/78
[2022-03-28] MEDS: LORAZEPAM 1 MG TABLET PO PRN (20:27)
[2022-03-28] MEDS: SENNOSIDES 1 TABLET PO SCH (20:27)
[2022-03-28] MEDS: METOPROLOL TARTRATE 50 MG TABLET PO SCH (20:27)
[2022-03-28] MEDS: ATORVASTATIN 10 MG TABLET PO SCH (20:27)
[2022-03-29] MEDS: ZOLPIDEM 5 MG TABLET PO PRN ×2 (01:43→22:32)
[2022-03-29] MEDS ORDERED: LORAZEPAM 1 MG TABLET PO PRN (03:30)
[2022-03-29] MEDS ORDERED: ZOLPIDEM 5 MG TABLET PO PRN (03:30)
[2022-03-29] MEDS ORDERED: ACETAMINOPHEN 325 MG TABLET PO PRN (03:30)
[2022-03-29] MEDS ORDERED: MAG HYDROX/AL HYDROX/SIMETH 30 ML LIQUID UDC PO PRN (03:30)
[2022-03-29] MEDS ORDERED: MAGNESIUM HYDROXIDE 30 ML LIQUID UDC PO PRN (03:30)
--- NOTE | 2022-03-29 03:49 | NUR ---
Patient was medication compliant and very anxious at the start of the shift. During the night, this patient woke up , multiple times confused , disoriented and unable to seep. The patient was given a snack and brought out to the nurses station for closer monitoring. The patient has been hallucinating and delusional but not combative in any way. Frequent reorientation and reassurance are on going. Safety Stratiges are in place.
[2022-03-29] MEDS: LEVOTHYROXINE SODIUM 25 MCG TABLET PO SCH (05:46)
[2022-03-29] MEDS: CALCIUM CARB/VITAMIN D 500MG-200UNITS TABLET PO SCH ×2 (05:46→16:52)
[2022-03-29 07:30] VITALS: BP 147/62
[2022-03-29] MEDS: ASPIRIN 81 MG TAB.CHEW PO SCH (08:43)
[2022-03-29] MEDS: METOPROLOL TARTRATE 50 MG TABLET PO SCH ×2 (08:44→20:13)
[2022-03-29] MEDS: ASCORBIC ACID 500 MG TABLET PO SCH (08:44)
[2022-03-29] MEDS: ACIDOPHILUS/BULGARICUS CHEW TAB PO SCH ×2 (08:44→16:51)
[2022-03-29] MEDS: MULTIVITAMINS,THERAPEUTIC TABLET PO SCH (08:44)
[2022-03-29] MEDS: ESCITALOPRAM OXALATE 10 MG TABLET PO SCH (08:45)
[2022-03-29] MEDS: OLANZAPINE 2.5 MG TABLET PO SCH ×2 (08:45→20:12)
[2022-03-29] MEDS: LOSARTAN POTASSIUM 50 MG TABLET PO SCH ×2 (08:46→16:52)
[2022-03-29] MEDS: DOXYCYCLINE HYCLATE 100 MG TABLET PO SCH ×2 (08:46→20:12)
[2022-03-29] MEDS: GLUCERNA SHAKE 237 ML CAN PO SCH ×2 (08:46→16:52)
--- NOTE | 2022-03-29 15:49 | NUR ---
Patient is cooperative with nursing care, compliant with medications, confused and forgetful at times, engage in conversations. Patient ambulates with assistance, requires minimal assistance with nursing care. Patient is encourage to verbalize concerns. Fall and safety precautions implemented.
[2022-03-29 16:00] VITALS: BP 134/52
[2022-03-29] MEDS: SENNOSIDES 1 TABLET PO SCH (20:12)
[2022-03-29] MEDS: ATORVASTATIN 10 MG TABLET PO SCH (20:13)
[2022-03-29 20:36] VITALS: BP 158/65
--- NOTE | 2022-03-29 21:07 | NUR ---
GPS: Anxious,restless,confused and forgetful. Reality re-orientation provided prn. Poor insight and judgment to present situation. Meds as ordered and is compliant. Safe environment provided. Fall precautions observed. Will continue to monitor.
[2022-03-30] MEDS: CALCIUM CARB/VITAMIN D 500MG-200UNITS TABLET PO SCH ×2 (06:30→17:20)
[2022-03-30] MEDS: LEVOTHYROXINE SODIUM 25 MCG TABLET PO SCH (06:30)
[2022-03-30 07:30] VITALS: BP 146/80
[2022-03-30] MEDS: ASPIRIN 81 MG TAB.CHEW PO SCH (09:18)
[2022-03-30] MEDS: GLUCERNA SHAKE 237 ML CAN PO SCH ×2 (09:18→17:38)
[2022-03-30] MEDS: ACIDOPHILUS/BULGARICUS CHEW TAB PO SCH ×2 (09:19→17:20)
[2022-03-30] MEDS: LOSARTAN POTASSIUM 50 MG TABLET PO SCH ×2 (09:19→17:26)
[2022-03-30] MEDS: ESCITALOPRAM OXALATE 10 MG TABLET PO SCH (09:20)
[2022-03-30] MEDS: ASCORBIC ACID 500 MG TABLET PO SCH (09:21)
[2022-03-30] MEDS: DOXYCYCLINE HYCLATE 100 MG TABLET PO SCH (09:21)
[2022-03-30] MEDS: MULTIVITAMINS,THERAPEUTIC TABLET PO SCH (09:21)
[2022-03-30] MEDS: OLANZAPINE 2.5 MG TABLET PO SCH ×2 (09:45→20:12)
[2022-03-30] MEDS: METOPROLOL TARTRATE 50 MG TABLET PO SCH ×2 (09:47→20:13)
--- NOTE | 2022-03-30 15:57 | NUR ---
Patient is demanding, needy, attention seeker, confused and forgetful, selective with medications but taking them, requires more than minimal assistance with ADL. Patient is A/O X 2 to person. Emotional support provided. Fall and safety precautions implemented.
[2022-03-30 16:00] VITALS: BP 141/63
[2022-03-30] MEDS: ATORVASTATIN 10 MG TABLET PO SCH (20:12)
[2022-03-30] MEDS: SENNOSIDES 1 TABLET PO SCH (20:13)
[2022-03-30 20:51] VITALS: BP 150/79
--- NOTE | 2022-03-30 22:24 | NUR ---
GPS: Pt.remains anxious,confused,forgetful and disorganized. Poor insight to present situation. Re-assured and re-directed prn. Compliant with her meds.although paranoid at times. Fall precautions observed. Needs attended. Will continue to monitor behavior.
[2022-03-31] MEDS: CALCIUM CARB/VITAMIN D 500MG-200UNITS TABLET PO SCH ×2 (06:28→17:11)
[2022-03-31] MEDS: LEVOTHYROXINE SODIUM 25 MCG TABLET PO SCH (06:28)
[2022-03-31 07:30] VITALS: BP 175/74
[2022-03-31] MEDS: OLANZAPINE 2.5 MG TABLET PO SCH ×2 (08:21→20:30)
[2022-03-31] MEDS: ACIDOPHILUS/BULGARICUS CHEW TAB PO SCH ×2 (08:21→17:11)
[2022-03-31] MEDS: MULTIVITAMINS,THERAPEUTIC TABLET PO SCH (08:22)
[2022-03-31] MEDS: ASPIRIN 81 MG TAB.CHEW PO SCH (08:22)
[2022-03-31] MEDS: ASCORBIC ACID 500 MG TABLET PO SCH (08:22)
[2022-03-31] MEDS: ESCITALOPRAM OXALATE 10 MG TABLET PO SCH (08:22)
[2022-03-31] MEDS: LOSARTAN POTASSIUM 50 MG TABLET PO SCH ×2 (08:28→17:11)
[2022-03-31] MEDS: METOPROLOL TARTRATE 50 MG TABLET PO SCH ×2 (08:28→20:30)
[2022-03-31] MEDS: GLUCERNA SHAKE 237 ML CAN PO SCH ×2 (08:29→17:12)
--- NOTE | 2022-03-31 12:44 | NUR ---
WOUND CARE CONSULT: RECEIVED REQUEST TO SEE PT FOR LEFT LOWER LEG AND FOOT REDNESS WITH PEELING SKIN WELL LONG TOENAILS. DR GODFREY CALLED FOR DPM CONSULT. IN AGREEMENT WITH PLAN OF CARE.
[2022-03-31 16:00] VITALS: BP 159/59
--- NOTE | 2022-03-31 16:18 | NUR ---
Patient is demanding, needy, attention seeker, depressed, talkative at times, selective with medications but taking them, suspicious. Wound consult ordered today for scaly, red, bloody left lower extremity. Requires minimal assistance with ADL. Patient is encourage to verbalize concerns. Fall and safety precautions implemented.
[2022-03-31 20:19] VITALS: BP 121/67
[2022-03-31] MEDS: SENNOSIDES 1 TABLET PO SCH (20:30)
[2022-03-31] MEDS: ATORVASTATIN 10 MG TABLET PO SCH (20:30)
[2022-03-31] MEDS: LORAZEPAM 1 MG TABLET PO PRN (21:49)
--- NOTE | 2022-04-01 02:17 | NUR ---
This patient has been compliant with all medications this PM. Still anxious and suspicious with staff. The patient ate snack and was assisted to the bathroom using a FWW. The patient is very Hard of Hearing , making conversation difficult.She did deny SI . The patient is worried about most everything. Reassurance and reorientation provided throughout the shift as needed. Safety Stratiges are in place.
[2022-04-01] MEDS: LEVOTHYROXINE SODIUM 25 MCG TABLET PO SCH (06:01)
[2022-04-01] MEDS: CALCIUM CARB/VITAMIN D 500MG-200UNITS TABLET PO SCH ×2 (06:01→16:46)
[2022-04-01 08:03] VITALS: BP 171/84
[2022-04-01] MEDS: ASPIRIN 81 MG TAB.CHEW PO SCH (08:30)
[2022-04-01] MEDS: GLUCERNA SHAKE 237 ML CAN PO SCH ×2 (08:30→16:47)
[2022-04-01] MEDS: MULTIVITAMINS,THERAPEUTIC TABLET PO SCH (08:30)
[2022-04-01] MEDS: ESCITALOPRAM OXALATE 10 MG TABLET PO SCH (08:31)
[2022-04-01] MEDS: OLANZAPINE 2.5 MG TABLET PO SCH ×2 (08:31→21:20)
[2022-04-01] MEDS: ACIDOPHILUS/BULGARICUS CHEW TAB PO SCH ×2 (08:31→16:46)
[2022-04-01] MEDS: METOPROLOL TARTRATE 50 MG TABLET PO SCH ×2 (08:31→21:20)
[2022-04-01] MEDS: ASCORBIC ACID 500 MG TABLET PO SCH (08:31)
[2022-04-01] MEDS: LOSARTAN POTASSIUM 50 MG TABLET PO SCH ×2 (08:31→16:47)
--- NOTE | 2022-04-01 10:23 | NUR ---
PT WAS FOUND ON FLOOR NEXT TO TOILET IN BATHROOM FROM AN APPARENT FALL. PT STATED SHE FINISHED TOILETING, AND WAS TRYING TO GET UP TO HER FWW AND DID NOT HAVE THE FULL STRENGTH TO GET UP. NO VISIBLE INJURIES NOTED AT THIS TIME. NON SLIP SOCKS WERE ON PT DURING APPARENT FALL. PT C/O 05/19 LEFT SHARP FLANK PAIN. CALLED DR. GALVAN AND HE IS NOTIFIED. CALLED DR. HAGER, AND HE IS ALSO NOTIFIED WITH ORDERS FOR KUB. IN NO ACUTE DISTRESS.
[2022-04-01] MEDS: ACETAMINOPHEN 325 MG TABLET PO PRN (13:44)
[2022-04-01 16:25] VITALS: BP 161/73
[2022-04-01 20:00] VITALS: BP 141/72
[2022-04-01] MEDS: SENNOSIDES 1 TABLET PO SCH (21:20)
[2022-04-01] MEDS: ATORVASTATIN 10 MG TABLET PO SCH (21:20)
[2022-04-01] MEDS: ZOLPIDEM 5 MG TABLET PO PRN (21:47)
[2022-04-01] MEDS: LORAZEPAM 1 MG TABLET PO PRN (23:35)
--- NOTE | 2022-04-02 05:30 | NUR ---
GPS: Pt.slept poorly last night despite receiving anxiety and sleeping med. as requested by pt. Pt.is anxious,restless,needy,demanding at times and talking to self most of the night. Pt.is positive for visual hallucinations. Re-directed and re-assured prn. Fall precautions observed. Denies pain at this time when asked. Needs attended. Will continue to monitor.
[2022-04-02] MEDS: LEVOTHYROXINE SODIUM 25 MCG TABLET PO SCH (06:05)
[2022-04-02] MEDS: CALCIUM CARB/VITAMIN D 500MG-200UNITS TABLET PO SCH ×2 (06:05→17:13)
[2022-04-02 07:55] VITALS: BP 176/81
[2022-04-02] MEDS: ASCORBIC ACID 500 MG TABLET PO SCH (08:44)
[2022-04-02] MEDS: ASPIRIN 81 MG TAB.CHEW PO SCH (08:44)
[2022-04-02] MEDS: MULTIVITAMINS,THERAPEUTIC TABLET PO SCH (08:44)
[2022-04-02] MEDS: METOPROLOL TARTRATE 50 MG TABLET PO SCH ×2 (08:45→20:33)
[2022-04-02] MEDS: OLANZAPINE 2.5 MG TABLET PO SCH (08:45)
[2022-04-02] MEDS: GLUCERNA SHAKE 237 ML CAN PO SCH ×2 (08:46→17:14)
[2022-04-02] MEDS: LOSARTAN POTASSIUM 50 MG TABLET PO SCH ×2 (08:46→17:14)
[2022-04-02] MEDS: ESCITALOPRAM OXALATE 10 MG TABLET PO SCH (08:46)
[2022-04-02] MEDS: ACIDOPHILUS/BULGARICUS CHEW TAB PO SCH ×2 (08:47→17:13)
[2022-04-02] MEDS ORDERED: MINERAL OIL/PETROLATUM,WHITE 57 GM TUBE TOP PRN (12:45)
--- NOTE | 2022-04-02 15:24 | NUR ---
Received Patient is AAO x2 forgetful, confused, disorganized, argumentative and needy with nursing care, compliant with AM medications. s/p CT head done will follow up for result , Patient ambulates with walker, unsteady gait. Continent with bladder and bowel. Reality orientation provided. Fall and safety precautions implemented.
[2022-04-02 16:39] VITALS: BP 129/75
[2022-04-02] MEDS: CLOTRIMAZOLE 1% CREAM 30 GM TUBE TOP SCH (17:00)
[2022-04-02 20:02] VITALS: BP 111/59
[2022-04-02] MEDS: ATORVASTATIN 10 MG TABLET PO SCH (20:32)
[2022-04-02] MEDS: SENNOSIDES 1 TABLET PO SCH (20:32)
[2022-04-02] MEDS: OLANZAPINE 5 MG TABLET PO SCH (20:32)
[2022-04-02] MEDS: LORAZEPAM 1 MG TABLET PO PRN (20:32)
[2022-04-02] MEDS: ACETAMINOPHEN 325 MG TABLET PO PRN (23:27)
[2022-04-02] MEDS: ZOLPIDEM 5 MG TABLET PO PRN (23:28)
[2022-04-03] MEDS: LEVOTHYROXINE SODIUM 25 MCG TABLET PO SCH (06:52)
[2022-04-03] MEDS: CALCIUM CARB/VITAMIN D 500MG-200UNITS TABLET PO SCH ×2 (06:52→16:05)
[2022-04-03 08:09] VITALS: BP 155/73
[2022-04-03] MEDS: MULTIVITAMINS,THERAPEUTIC TABLET PO SCH (10:43)
[2022-04-03] MEDS: ASPIRIN 81 MG TAB.CHEW PO SCH (10:43)
[2022-04-03] MEDS: ESCITALOPRAM OXALATE 10 MG TABLET PO SCH (10:43)
[2022-04-03] MEDS: ACIDOPHILUS/BULGARICUS CHEW TAB PO SCH ×2 (10:44→16:05)
[2022-04-03] MEDS: OLANZAPINE 2.5 MG TABLET PO SCH (10:44)
[2022-04-03] MEDS: ASCORBIC ACID 500 MG TABLET PO SCH (10:45)
[2022-04-03] MEDS: METOPROLOL TARTRATE 50 MG TABLET PO SCH ×2 (10:46→21:15)
[2022-04-03] MEDS: LOSARTAN POTASSIUM 50 MG TABLET PO SCH ×2 (10:49→16:03)
[2022-04-03] MEDS: GLUCERNA SHAKE 237 ML CAN PO SCH ×2 (10:50→16:06)
[2022-04-03] MEDS: CLOTRIMAZOLE 1% CREAM 30 GM TUBE TOP SCH ×2 (10:50→16:05)
[2022-04-03 11:05] LABS: HEMATOCRIT 41.5 % (31.2-41.9); MEAN CORPUSCULAR HEMOGLOBIN 29.3 uug (24.7-32.8); MEAN CORPUSCULAR VOLUME 89.8 fL (75.5-95.3); PLATELET COUNT (AUTO) 508 K/uL (179-408)
[2022-04-03 11:08] LABS: POTASSIUM 4.1 mmol/L (3.5-5.1)
--- NOTE | 2022-04-03 11:10 | NUR ---
SW Discharge Update: SW spoke with RN, Mike who is informed on pt's return to [facility] [address] [place] [address] ([phone]) on Sunday at 11am by facilities transportation. Mike stated Hina the community child caregiver who this SW initially spoke with will contact this mortgage or loan underwriter back if needed.
--- NOTE | 2022-04-03 11:15 | NUR ---
VANDA Family Contact: VANDA spoke with pt's brother, Dash Haas ([phone]) and informed him on pt's discharge details to return to [facility] on Sunday. Dash was grateful for the update.
[2022-04-03 16:09] VITALS: BP 148/74
[2022-04-03 19:47] VITALS: BP 120/73
[2022-04-03] MEDS: ATORVASTATIN 10 MG TABLET PO SCH (21:14)
[2022-04-03] MEDS: LORAZEPAM 1 MG TABLET PO PRN (21:14)
[2022-04-03] MEDS: OLANZAPINE 5 MG TABLET PO SCH (21:14)
[2022-04-03] MEDS: SENNOSIDES 1 TABLET PO SCH (21:15)
[2022-04-04] MEDS: LORAZEPAM 1 MG TABLET PO PRN ×2 (06:26→21:34)
[2022-04-04] MEDS: LEVOTHYROXINE SODIUM 25 MCG TABLET PO SCH (06:26)
[2022-04-04] MEDS: CALCIUM CARB/VITAMIN D 500MG-200UNITS TABLET PO SCH ×2 (06:26→17:14)
[2022-04-04 08:00] VITALS: BP 125/64
[2022-04-04] MEDS: ACIDOPHILUS/BULGARICUS CHEW TAB PO SCH ×2 (09:59→17:13)
[2022-04-04] MEDS: ASPIRIN 81 MG TAB.CHEW PO SCH (09:59)
[2022-04-04] MEDS: MULTIVITAMINS,THERAPEUTIC TABLET PO SCH (09:59)
[2022-04-04] MEDS: OLANZAPINE 2.5 MG TABLET PO SCH (09:59)
[2022-04-04] MEDS: METOPROLOL TARTRATE 50 MG TABLET PO SCH ×2 (10:00→21:35)
[2022-04-04] MEDS: GLUCERNA SHAKE 237 ML CAN PO SCH ×2 (10:01→17:15)
[2022-04-04] MEDS: LOSARTAN POTASSIUM 50 MG TABLET PO SCH ×2 (10:02→17:14)
[2022-04-04] MEDS: ASCORBIC ACID 500 MG TABLET PO SCH (10:05)
[2022-04-04] MEDS: CLOTRIMAZOLE 1% CREAM 30 GM TUBE TOP SCH ×2 (10:06→17:15)
--- NOTE | 2022-04-04 10:18 | NUR ---
VANDA Discharge Update: VANDA spoke with Shayla in person from [facility] [address] [place] [address] ([phone]) who came to evaluate the pt. Per pt's Dia ESPINOZA ([phone]) and Shayla, pt cannot return to [facility] due to her continuation of care needs. They stated she will need higher level of care as [facility] does not have that available. VANDA discussed the discharge update with psychiatrist, Dr. Gil. VANDA and will work with pt to ensure a safe and proper discharge plan that pt agrees with.
--- NOTE | 2022-04-04 14:56 | NUR ---
Received patient sleeping in the hallway. A/O X 1 -2 to person. Patient is withdrawn, quiet, depressed, sleepy since she slept only 2 hours last night, complaint with medications, cooperative with nursing care. Patient presents scaly, red lower extremities treated with clotrimazole cream. Emotional support provided. Fall and safety precautions implemented.
[2022-04-04 16:04] VITALS: BP 108/82
[2022-04-04 20:00] VITALS: BP 118/66
[2022-04-04 20:03] LABS: *BILIRUBIN,URIN NEGATIVE (NEGATIVE); *BLOOD, URINE NEGATIVE (NEGATIVE); *CLARITY,URINE CLEAR (CLEAR); *COLOR,URINE YELLOW (YELLOW); *KETONES,URINE NEGATIVE (NEGATIVE); *UROBILINOGEN,URINE 0.2 E.U./dl (NORMAL); LEUKOCYTE ESTERASE ,URINE NEGATIVE (NEGATIVE); NITRITE, URINE NEGATIVE (NEGATIVE); UGLUCOSE NEGATIVE (NEGATIVE)
[2022-04-04] MEDS: SENNOSIDES 1 TABLET PO SCH (21:34)
[2022-04-04] MEDS: OLANZAPINE 5 MG TABLET PO SCH (21:34)
[2022-04-04] MEDS: ATORVASTATIN 10 MG TABLET PO SCH (21:35)
--- NOTE | 2022-04-05 02:50 | NUR ---
Pt continues to present with confusion, disorientation, and is AOx1. Overall compliant with POC, pt needs continuous reassurance and re-education. Pt is ambulatory x1 assist. Fall risk. Needs full assistance with ADLs. Pt continues to have trouble staying asleep at night/this shift. Safety measure taken. Will continue to monitor.
[2022-04-05] MEDS: LEVOTHYROXINE SODIUM 25 MCG TABLET PO SCH ×3 (06:13→07:22)
[2022-04-05] MEDS: CALCIUM CARB/VITAMIN D 500MG-200UNITS TABLET PO SCH ×4 (06:13→16:57)
[2022-04-05 07:30] VITALS: BP 168/79
[2022-04-05] MEDS: ASPIRIN 81 MG TAB.CHEW PO SCH (09:07)
[2022-04-05] MEDS: ACIDOPHILUS/BULGARICUS CHEW TAB PO SCH ×2 (09:07→16:57)
[2022-04-05] MEDS: MULTIVITAMINS,THERAPEUTIC TABLET PO SCH (09:07)
[2022-04-05] MEDS: METOPROLOL TARTRATE 50 MG TABLET PO SCH ×2 (09:08→20:23)
[2022-04-05] MEDS: LOSARTAN POTASSIUM 50 MG TABLET PO SCH ×2 (09:08→16:58)
[2022-04-05] MEDS: GLUCERNA SHAKE 237 ML CAN PO SCH ×2 (09:09→16:58)
[2022-04-05] MEDS: CLOTRIMAZOLE 1% CREAM 30 GM TUBE TOP SCH ×2 (09:09→16:58)
[2022-04-05] MEDS: ASCORBIC ACID 500 MG TABLET PO SCH (09:12)
--- NOTE | 2022-04-05 14:53 | NUR ---
Received patient sleeping in the hallway. A/O X 2 to person. Patient is withdrawn, confused, disoriented, depressed, complaint with medications, cooperative with nursing care, following directions. Patient lower extremities is treated with clotrimazole cream twice per day. Patient is encourage to verbalize concerns. Fall and safety precautions implemented.
[2022-04-05 16:00] VITALS: BP 122/51
[2022-04-05 20:16] VITALS: BP 134/56
[2022-04-05] MEDS: OLANZAPINE 2.5 MG TABLET PO SCH (20:22)
[2022-04-05] MEDS: ATORVASTATIN 10 MG TABLET PO SCH (20:22)
[2022-04-05] MEDS: SENNOSIDES 1 TABLET PO SCH (20:22)
[2022-04-05] MEDS: ZOLPIDEM 5 MG TABLET PO PRN (21:45)
[2022-04-06] MEDS: LORAZEPAM 1 MG TABLET PO PRN (02:10)
[2022-04-06] MEDS: LEVOTHYROXINE SODIUM 25 MCG TABLET PO SCH (06:15)
[2022-04-06] MEDS: CALCIUM CARB/VITAMIN D 500MG-200UNITS TABLET PO SCH ×2 (06:15→17:12)
--- NOTE | 2022-04-06 06:27 | NUR ---
GPS: Pt.slept for 4 hrs.last night. Pt.was observed to be having visual hallucinations. Confused,forgetful and disorganized. Poor insight to present situation. Med.compliant. Fall precautions observed. Will continue to re-direct prn.
[2022-04-06 07:30] VITALS: BP_SYST 115; BP_SYST 120; BP_DIAS 60; BP_DIAS 63
[2022-04-06] MEDS: ASPIRIN 81 MG TAB.CHEW PO SCH (08:38)
[2022-04-06] MEDS: MULTIVITAMINS,THERAPEUTIC TABLET PO SCH (08:39)
[2022-04-06] MEDS: ACIDOPHILUS/BULGARICUS CHEW TAB PO SCH ×2 (08:40→17:12)
[2022-04-06] MEDS: ASCORBIC ACID 500 MG TABLET PO SCH (08:40)
[2022-04-06] MEDS: METOPROLOL TARTRATE 50 MG TABLET PO SCH ×2 (08:40→20:14)
[2022-04-06] MEDS: GLUCERNA SHAKE 237 ML CAN PO SCH ×2 (08:41→17:13)
[2022-04-06] MEDS: CLOTRIMAZOLE 1% CREAM 30 GM TUBE TOP SCH ×2 (08:41→17:14)
[2022-04-06] MEDS: LOSARTAN POTASSIUM 50 MG TABLET PO SCH ×2 (08:41→17:00)
--- NOTE | 2022-04-06 14:59 | NUR ---
Received patient sleeping in her room. A/O X 2 to person. Patient is confused and states "My son forgot me here. Can you call him to pick me up?" Patient is preoccupied "Is my leg any better? Am I losing my leg?" Patient is disoriented, forgetful. Patient is compliant with medications. Patient requires more than minimal assistance with ADL. Active listening provided. Fall and safety precautions implemented.
--- NOTE | 2022-04-06 15:13 | NUR ---
VANDA Family Contact: SW spoke with pt's brother, aDsh Haas ([phone]) and informed him on pt's discharge details to [place] [address] ([phone]). Dash was grateful for the help. Pt is agreeable to the facility.
[2022-04-06 16:00] VITALS: BP 112/67
[2022-04-06 20:07] VITALS: BP 127/68
[2022-04-06] MEDS: ATORVASTATIN 10 MG TABLET PO SCH (20:13)
[2022-04-06] MEDS: SENNOSIDES 1 TABLET PO SCH (20:13)
[2022-04-06] MEDS: OLANZAPINE 2.5 MG TABLET PO SCH (20:13)
[2022-04-06] MEDS: TEMAZEPAM 15 MG CAPSULE PO PRN (22:01)
[2022-04-07] MEDS: CALCIUM CARB/VITAMIN D 500MG-200UNITS TABLET PO SCH ×2 (07:00→17:09)
[2022-04-07] MEDS: LEVOTHYROXINE SODIUM 25 MCG TABLET PO SCH (07:00)
[2022-04-07 07:30] VITALS: BP 126/69
[2022-04-07] MEDS: ACIDOPHILUS/BULGARICUS CHEW TAB PO SCH ×2 (08:29→17:09)
[2022-04-07] MEDS: ASPIRIN 81 MG TAB.CHEW PO SCH (08:29)
[2022-04-07] MEDS: MULTIVITAMINS,THERAPEUTIC TABLET PO SCH (08:29)
[2022-04-07] MEDS: LOSARTAN POTASSIUM 50 MG TABLET PO SCH ×2 (08:30→17:09)
[2022-04-07] MEDS: METOPROLOL TARTRATE 50 MG TABLET PO SCH ×2 (08:30→20:02)
[2022-04-07] MEDS: GLUCERNA SHAKE 237 ML CAN PO SCH ×2 (08:31→17:12)
[2022-04-07] MEDS: ASCORBIC ACID 500 MG TABLET PO SCH (08:31)
[2022-04-07] MEDS: CLOTRIMAZOLE 1% CREAM 30 GM TUBE TOP SCH ×2 (08:32→17:12)
[2022-04-07 16:00] VITALS: BP 115/47
--- NOTE | 2022-04-07 16:21 | NUR ---
Received Patient is AAO x2 forgetful, confused, disorganized, argumentative and needy with nursing care, compliant with AM medications. Patient has BLE cellulitis wound care done , Patient ambulates with walker, unsteady gait. Continent with bladder and bowel. Reality orientation provided. Fall and safety precautions implemented.
[2022-04-07] MEDS: ATORVASTATIN 10 MG TABLET PO SCH (20:01)
[2022-04-07] MEDS: SENNOSIDES 1 TABLET PO SCH (20:01)
[2022-04-07] MEDS: OLANZAPINE 2.5 MG TABLET PO SCH (20:01)
[2022-04-07] MEDS: ACETAMINOPHEN 325 MG TABLET PO PRN (20:09)
[2022-04-07 21:03] VITALS: BP 139/66
[2022-04-07] MEDS: TEMAZEPAM 15 MG CAPSULE PO PRN (21:39)
[2022-04-08] MEDS: HYDROXYZINE PAMOATE 25 MG CAPSULE PO PRN ×2 (04:13→20:07)
[2022-04-08] MEDS: CALCIUM CARB/VITAMIN D 500MG-200UNITS TABLET PO SCH ×2 (06:07→17:00)
[2022-04-08] MEDS: LEVOTHYROXINE SODIUM 25 MCG TABLET PO SCH (06:07)
[2022-04-08] MEDS: ASPIRIN 81 MG TAB.CHEW PO SCH (08:42)
[2022-04-08] MEDS: LOSARTAN POTASSIUM 50 MG TABLET PO SCH ×2 (08:42→17:00)
[2022-04-08] MEDS: ACIDOPHILUS/BULGARICUS CHEW TAB PO SCH ×2 (08:42→17:00)
[2022-04-08] MEDS: ASCORBIC ACID 500 MG TABLET PO SCH (08:42)
[2022-04-08] MEDS: MULTIVITAMINS,THERAPEUTIC TABLET PO SCH (08:42)
[2022-04-08] MEDS: METOPROLOL TARTRATE 50 MG TABLET PO SCH ×2 (08:43→20:06)
[2022-04-08] MEDS: GLUCERNA SHAKE 237 ML CAN PO SCH ×2 (08:44→17:12)
[2022-04-08] MEDS: CLOTRIMAZOLE 1% CREAM 30 GM TUBE TOP SCH ×2 (08:45→17:12)
--- NOTE | 2022-04-08 14:43 | NUR ---
patient is confused and disoriented med.compliant. Paranoid and suspicious. Re-directed and re-assured prn. Takes meds. as ordered. Fall precautions observed. Needs attended.
[2022-04-08 16:06] VITALS: BP 119/70
[2022-04-08] MEDS: ATORVASTATIN 10 MG TABLET PO SCH (20:06)
[2022-04-08] MEDS: OLANZAPINE 2.5 MG TABLET PO SCH (20:07)
[2022-04-08] MEDS: SENNOSIDES 1 TABLET PO SCH (20:07)
[2022-04-08 20:22] VITALS: BP 150/78
[2022-04-08] MEDS: ACETAMINOPHEN 325 MG TABLET PO PRN (22:22)
[2022-04-08] MEDS: TEMAZEPAM 15 MG CAPSULE PO PRN (22:22)
--- NOTE | 2022-04-09 04:44 | NUR ---
Pt remains confused, disoriented, and disheveled. Pt continues to experience AH and VH. Takes repetitive effort to re-direct and re-educate. Overall, pt is compliant with POC. Denies SI/HI. Contracted for safety.
[2022-04-09] MEDS: CALCIUM CARB/VITAMIN D 500MG-200UNITS TABLET PO SCH ×2 (06:17→16:59)
[2022-04-09] MEDS: LEVOTHYROXINE SODIUM 25 MCG TABLET PO SCH (06:17)
[2022-04-09 08:19] VITALS: BP 148/60
[2022-04-09] MEDS: ASCORBIC ACID 500 MG TABLET PO SCH (09:09)
[2022-04-09] MEDS: ACIDOPHILUS/BULGARICUS CHEW TAB PO SCH ×2 (09:09→17:00)
[2022-04-09] MEDS: ASPIRIN 81 MG TAB.CHEW PO SCH (09:09)
[2022-04-09] MEDS: MULTIVITAMINS,THERAPEUTIC TABLET PO SCH (09:09)
[2022-04-09] MEDS: METOPROLOL TARTRATE 50 MG TABLET PO SCH ×2 (09:10→20:15)
[2022-04-09] MEDS: LOSARTAN POTASSIUM 50 MG TABLET PO SCH ×2 (09:10→17:00)
[2022-04-09] MEDS: CLOTRIMAZOLE 1% CREAM 30 GM TUBE TOP SCH ×2 (09:11→17:01)
[2022-04-09] MEDS: GLUCERNA SHAKE 237 ML CAN PO SCH ×2 (09:11→17:02)
--- NOTE | 2022-04-09 14:30 | NUR ---
Received patient sleeping in her room. Patient is A/OX 1 -2 to person. Patient is confused, forgetful, disoriented, preoccupied, disorganized, needy and demanding at times. Patient ambulates with assistance, requires more than minimal assistance with ADL. Reassurance given. Fall and safety precautions implemented.
[2022-04-09 16:15] VITALS: BP 128/58
[2022-04-09 19:54] VITALS: BP 131/73
[2022-04-09] MEDS: ACETAMINOPHEN 325 MG TABLET PO PRN (20:13)
[2022-04-09] MEDS: OLANZAPINE 2.5 MG TABLET PO SCH (20:13)
[2022-04-09] MEDS: ATORVASTATIN 10 MG TABLET PO SCH (20:14)
[2022-04-09] MEDS: SENNOSIDES 1 TABLET PO SCH (20:14)
[2022-04-09] MEDS: HYDROXYZINE PAMOATE 25 MG CAPSULE PO PRN (20:14)
--- NOTE | 2022-04-10 04:49 | NUR ---
Pt is still AOx1, responds to name, but disoriented, disorganized, and confused. Pt continues to have AH & VH throughout this shift. Pt is difficult to direct, but with continued effort pt is compliant. Pt speaks out loud having conversations with imaginary people. Will continue to monitor.
[2022-04-10] MEDS: LEVOTHYROXINE SODIUM 25 MCG TABLET PO SCH (07:17)
[2022-04-10] MEDS: CALCIUM CARB/VITAMIN D 500MG-200UNITS TABLET PO SCH ×2 (07:17→17:00)
[2022-04-10 07:51] VITALS: BP 131/56
[2022-04-10] MEDS: ACIDOPHILUS/BULGARICUS CHEW TAB PO SCH ×2 (08:57→17:00)
[2022-04-10] MEDS: ASCORBIC ACID 500 MG TABLET PO SCH (08:57)
[2022-04-10] MEDS: ASPIRIN 81 MG TAB.CHEW PO SCH (08:57)
[2022-04-10] MEDS: METOPROLOL TARTRATE 50 MG TABLET PO SCH ×3 (08:59→22:01)
[2022-04-10] MEDS: MULTIVITAMINS,THERAPEUTIC TABLET PO SCH (08:59)
[2022-04-10] MEDS: LOSARTAN POTASSIUM 50 MG TABLET PO SCH ×2 (09:02→17:00)
[2022-04-10] MEDS: GLUCERNA SHAKE 237 ML CAN PO SCH ×2 (09:03→17:00)
[2022-04-10] MEDS: CLOTRIMAZOLE 1% CREAM 30 GM TUBE TOP SCH ×2 (09:05→17:00)
[2022-04-10 16:08] VITALS: BP 120/49
--- NOTE | 2022-04-10 16:37 | NUR ---
Received patient is sleeping in the room ,patient is confused and disoriented med.compliant. Paranoid and suspicious. Re-directed and re-assured prn. Takes meds. as ordered. Fall precautions observed. Needs attended.
[2022-04-10 20:11] VITALS: BP 117/67
[2022-04-10] MEDS: SENNOSIDES 1 TABLET PO SCH ×2 (21:00→22:02)
[2022-04-10] MEDS: ATORVASTATIN 10 MG TABLET PO SCH ×2 (21:00→22:03)
[2022-04-10] MEDS: OLANZAPINE 5 MG TABLET PO SCH ×2 (21:00→22:02)
[2022-04-10] MEDS ORDERED: OLANZAPINE 2.5 MG TABLET PO SCH (21:00)
--- NOTE | 2022-04-10 21:27 | NUR ---
GPS: Pt.is confused,disoriented and disorganized. Paranoid and suspicious. Refuses to take all her bedtime meds.despite numerous attempts by staff. Anxious,restless and argumentative. Re-directed and re-assured. Fall precautions observed. Will continue to monitor.
--- NOTE | 2022-04-10 22:03 | NUR ---
GPS: Pt's bedtime med.was re-offered to her one more time and pt.finally took them after a lot of persuasion from staff.
[2022-04-10] MEDS: TEMAZEPAM 15 MG CAPSULE PO PRN (23:36)
[2022-04-11] MEDS: LEVOTHYROXINE SODIUM 25 MCG TABLET PO SCH (06:12)
[2022-04-11] MEDS: CALCIUM CARB/VITAMIN D 500MG-200UNITS TABLET PO SCH ×2 (06:12→16:23)
[2022-04-11 07:27] VITALS: BP 112/62
[2022-04-11] MEDS: ASPIRIN 81 MG TAB.CHEW PO SCH (08:35)
[2022-04-11] MEDS: MULTIVITAMINS,THERAPEUTIC TABLET PO SCH (08:35)
[2022-04-11] MEDS: ACIDOPHILUS/BULGARICUS CHEW TAB PO SCH ×2 (08:36→16:23)
[2022-04-11] MEDS: GLUCERNA SHAKE 237 ML CAN PO SCH ×2 (08:36→16:24)
[2022-04-11] MEDS: ASCORBIC ACID 500 MG TABLET PO SCH (08:37)
[2022-04-11] MEDS: LOSARTAN POTASSIUM 50 MG TABLET PO SCH ×2 (08:38→16:24)
[2022-04-11] MEDS: METOPROLOL TARTRATE 50 MG TABLET PO SCH ×2 (08:38→20:50)
[2022-04-11] MEDS: CLOTRIMAZOLE 1% CREAM 30 GM TUBE TOP SCH ×2 (08:41→16:28)
--- NOTE | 2022-04-11 12:17 | NUR ---
VANDA Family Contact: VANDA spoke with pt's brother, Dash Haas ([phone]) and informed him on pt's discharge details to [place] [address] ([phone]). Dash was informed against hat pt cannot return to [facility] due to facility unable to continue for her care. Dash was grateful for VANDA and Dr. Gil for helping find a new home for the pt.
[2022-04-11 15:43] VITALS: BP 124/65
[2022-04-11] MEDS: SENNOSIDES 1 TABLET PO SCH (20:50)
[2022-04-11] MEDS: HYDROXYZINE PAMOATE 25 MG CAPSULE PO PRN (20:50)
[2022-04-11] MEDS: OLANZAPINE 5 MG TABLET PO SCH (20:50)
[2022-04-11] MEDS: ATORVASTATIN 10 MG TABLET PO SCH (20:50)
[2022-04-11 20:55] VITALS: BP 128/63
[2022-04-12] MEDS: TEMAZEPAM 15 MG CAPSULE PO PRN (00:21)
[2022-04-12] MEDS: ACETAMINOPHEN 325 MG TABLET PO PRN (00:21)
[2022-04-12] MEDS: CALCIUM CARB/VITAMIN D 500MG-200UNITS TABLET PO SCH (06:59)
[2022-04-12] MEDS: LEVOTHYROXINE SODIUM 25 MCG TABLET PO SCH (06:59)
[2022-04-12 07:30] VITALS: BP 128/65
[2022-04-12] MEDS: CLOTRIMAZOLE 1% CREAM 30 GM TUBE TOP SCH (08:14)
[2022-04-12] MEDS: ASPIRIN 81 MG TAB.CHEW PO SCH (08:16)
[2022-04-12] MEDS: GLUCERNA SHAKE 237 ML CAN PO SCH (08:16)
[2022-04-12] MEDS: LOSARTAN POTASSIUM 50 MG TABLET PO SCH (08:18)
[2022-04-12] MEDS: ASCORBIC ACID 500 MG TABLET PO SCH (08:18)
[2022-04-12 08:29] VITALS: BP 128/65
[2022-04-12] MEDS: MULTIVITAMINS,THERAPEUTIC TABLET PO SCH (08:29)
[2022-04-12] MEDS: ACIDOPHILUS/BULGARICUS CHEW TAB PO SCH (08:29)
[2022-04-12] MEDS: METOPROLOL TARTRATE 50 MG TABLET PO SCH (08:29)
--- NOTE | 2022-04-12 10:17 | NUR ---
VANDA Discharge Note: Pt will be discharged to [facility] located at [address] [place] [address] ([phone]) via Ambulance transportation at 11AM. VANDA spoke with admin coordinator, Jagruti ([phone]) at the facility who states they are ready to accept the patient today. Pt is aware and agreeable with discharge plan. VANDA spoke with pts brother, Dash ([phone]) who is aware and agreeable with the discharge plan. VANDA informed Shayla in admissions at [facility] ([phone]) who confirmed that pts belongings will be transferred to [facility]. Pt is alert and oriented x2, is unable to plan for self-care at this time. However, pt is willing to accept care at SNF. Pt denies any suicidal or homicidal ideation. Pt will follow-up at the facility with Psychiatrist, Dr. Gil ([phone]) and Glove Maker, Dr. Coello. Pt presents with calm mood and congruent affect. Pt is cooperative with care. PHARMACY: [facility] ([phone]) [address] [facility] [address] [facility] [address].
[2022-04-12] MEDS: HYDROXYZINE PAMOATE 25 MG CAPSULE PO PRN (11:07)
--- NOTE | 2022-04-12 14:00 | NUR ---
Pt is being discharged to [facility] via ambulance. Pt is A/Ox1. VS are stable. All belongings returned. Discharge providers are provided to the staff. Report was called to the facility, given to NESTOR Lopes. No agitation, pt is calm on approach.
== END 2022-04-12 14:00 | DRG 885 ==
LOC: ER 23:43 → GPS 03-23 06:06
PROVIDERS: ADMIT Psychiatry & Neurology Psychiatry; ATTEND Internal Medicine
PROC: 0HBRXZZ Excision of Toe Nail, External Approach (ICD-10-PCS; principal; 2022-04-02)
DX: F29 Unspecified psychosis not due to a substance or known physiological condition (principal); I11.0 Hypertensive heart disease with heart failure; I50.32 Chronic diastolic (congestive) heart failure; L03.116 Cellulitis of left lower limb; D68.69 Other thrombophilia; F03.94 Unspecified dementia, unspecified severity, with anxiety; F03.92 Unspecified dementia, unspecified severity, with psychotic disturbance; E03.9 Hypothyroidism, unspecified; E66.9 Obesity, unspecified; E78.5 Hyperlipidemia, unspecified; G89.29 Other chronic pain; R73.03 Prediabetes; L60.0 Ingrowing nail; Z87.891 Personal history of nicotine dependence; Z79.899 Other long term (current) drug therapy; Z91.14 Patient's other noncompliance with medication regimen; F41.9 Anxiety disorder, unspecified; F60.3 Borderline personality disorder; F60.89 Other specific personality disorders; F32.A Depression, unspecified; M19.90 Unspecified osteoarthritis, unspecified site; J44.9 Chronic obstructive pulmonary disease, unspecified; Z74.09 Other reduced mobility; M54.10 Radiculopathy, site unspecified; D75.839 Thrombocytosis, unspecified; R74.01 Elevation of levels of liver transaminase levels; W19.XXXA Unspecified fall, initial encounter; Y93.9 Activity, unspecified; Y92.230 Patient room in hospital as the place of occurrence of the external cause; L30.9 Dermatitis, unspecified; I25.10 Atherosclerotic heart disease of native coronary artery without angina pectoris; Z91.199 Patient's noncompliance with other medical treatment and regimen due to unspecified reason; K21.9 Gastro-esophageal reflux disease without esophagitis; F60.0 Paranoid personality disorder; M79.672 Pain in left foot; M79.671 Pain in right foot; L60.2 Onychogryphosis; F25.9 Schizoaffective disorder, unspecified; Z68.38 Body mass index [BMI] 38.0-38.9, adult
CPT/HCPCS: 36415; 70450; 71045; 74018; 85025; 93005